=== PATIENT | female | born 1940 | race Caucasian/White ===

== ENCOUNTER 2019-02-25 12:56 | Observation (INO) | payer MEDICARE, OTHER ==
[~2019-02-25] VITALS: Ht 165.1 cm; Wt 63.5 kg
--- NOTE | ~2019-02-25 | CN ---
PATIENT NAME:ANDRY QUAN MEDICAL RECORD: [id number] : 44 LOCATION:D.MS [address] ADMIT DATE: 02/25/19 ACCOUNT: [id number] CONSULTING PHYSICIAN: SHANTHI CAIN MD REFERRING PHYSICIAN: SHERIF MONGE MD DATE OF CONSULTATION: 02/26/2019 CARDIOLOGY CONSULTATION DATE OF SERVICE: 02/26/2019 DIAGNOSES: 1. Transient ischemic attack. 2. Carotid vascular disease. 3. Hyperlipidemia. HISTORY OF PRESENT ILLNESS: Mrs. Quan presented with 2 days of having TIA symptomatology. This has all resolved. She is on Plavix and has been on Plavix for the last 3 years due to carotid vascular disease. Her carotid ultrasound showed no stenosis greater than 50%. Echocardiogram was performed. This revealed no significant cardiac source of neurologic emboli. PHYSICAL EXAMINATION: GENERAL APPEARANCE: Well-nourished, well-developed, appears stated age. Level of distress, comfortable. PSYCHIATRIC: Mental status, alert, normal affect. Orientation, oriented to time, place and person. EYES: Lids and conjunctiva, noninjected. No discharge, no pallor. ENT: Lips, teeth, gums, normal dentition. Oropharynx, no cyanosis, no pallor. NECK: Carotid arteries, bilateral normal upstroke, no bruits, no thrills. JUGULAR VEINS: No jugular venous pressure or distention. CERVICAL LYMPH NODES: Nontender, nonenlarged. THYROID: Not enlarged. Nontender. No nodules. LUNGS: Respiratory effort, unlabored. CHEST: Normal curvature. No thoracic deformity. No chest wall tenderness. Percussion, resonant. Auscultation, clear. No wheezes, no rales, no rhonchi. CARDIOVASCULAR: Precordial exam, nondisplaced. No heaves or pericardial thrills. Rate and rhythm, regular. Heart sounds, normal S1, normal S2. No S3, no gallop, no rub. Systolic murmur, not heard. Diastolic murmur, not heard. EXTREMITIES: No cyanosis, no edema. Peripheral pulses, full and equal in all extremities, except as noted. No bruits appreciated. ABDOMEN: Soft, nondistended. Normal aorta. No bruit. Nontender. No masses. Liver, nontender, no hepatomegaly. Spleen, nontender, no splenomegaly. MUSCULOSKELETAL: No joint tenderness. No joint swelling. No erythema. NEUROLOGICAL: Normal gait, normal strength, normal tone. SKIN: Warm and dry. OVERALL IMPRESSION: Transient ischemic attacks with nonsignificant carotid vascular disease. No cardiac source of neurologic emboli, hyperlipidemia controlled on fenofibrate and fish oil at this time. We would leave her on her Plavix that she is on as changing to Xarelto or Eliquis has no benefit from the standpoint of recurrent transient ischemic attacks. She needs to be followed by neurology. She lives close to the [facility], I would suggest that she follow up with Dr. Dillan Salmon, neurology, for the recurrent transient ischemic attacks. CONSULT REPORT [id number] ANDRY QUAN TRANSINT:[id number] Voice Confirmation ID: [id number] DOCUMENT ID: [id number] SHANTHI CAIN MD CC: [id number] DICTATION DATE: 02/26/19 1039 ORACLE OBIEE DEVELOPER: 02/26/19 1142 ADM IN [facility] [address] [id number]
[2019-02-25] MEDS ORDERED: HYDROCHLOROTHIA25 MG PO (13:14)
[2019-02-25] MEDS ORDERED: FENOFIBRATE160 MG PO (13:14)
[2019-02-25] MEDS ORDERED: VITAMIN D250000 UNIT PO (13:14)
[2019-02-25] MEDS ORDERED: GLUCOPHAGE1000 MG PO (13:14)
[2019-02-25] MEDS ORDERED: PLAVIX75 MG PO (13:14)
[2019-02-25] MEDS ORDERED: GLIMEPIRIDE4 MG PO (13:14)
[2019-02-25] MEDS ORDERED: FISH OIL 1,0001 CA1 PO (13:15)
[2019-02-25] MEDS ORDERED: CHLOR-TRIMETON4 MG PO (13:15)
[2019-02-25] MEDS ORDERED: MUCINEX600 MG PO (13:15)
[2019-02-25] MEDS ORDERED: COLACE100 MG PO (13:16)
[2019-02-25] MEDS ORDERED: BAYER CHEWABLE81 MG (13:16)
[2019-02-25] MEDS ORDERED: PEPCID AC20 MG PO (13:16)
[2019-02-25] MEDS ORDERED: MIRALAX17 GM PO (13:17)
[2019-02-25 13:45] VITALS: BP 171/81
--- NOTE | 2019-02-25 13:55 | NUR ---
BLOOD SUGAR 186
[2019-02-25 14:31] VITALS: BP 179/91
[2019-02-25 14:47] LABS: BASOPHILS 0.2 % (0-2); EOSINOPHILS 0.3 % (0-7); HEMATOCRIT 44.2 % (36.0-48.0); IMMATURE GRANULOCYTES 0.5 % (0-5); MCH 32.1 pg (26.0-34.0); MCHC 36.2 g/dL (31.0-37.0); MCV 88.6 fL (80.0-100.0); MEAN PLATELET VOLUME 9.9 fL (7.4-10.4); PLATELET COUNT 202 10x3/uL (130-400); RBC 4.99 10x6/uL (4.00-5.40); RDW 13.3 % (11.5-14.5); WBC 6.6 10x3/uL (4.8-10.8)
[2019-02-25 15:05] LABS: APTT 23.4 SECONDS (22.8-39.4); INR 1.09 (0.85-1.17); PROTIME 13.6 SECONDS (11.6-15.0)
[2019-02-25 15:30] VITALS: BP 170/75
[2019-02-25 15:32] LABS: ALBUMIN 4.6 g/dL (3.4-5.0); ALKALINE PHOSPHATASE 83 U/L (46-116); ALT (SGPT) 36 U/L (10-68); BILIRUBIN - TOTAL 0.52 mg/dL (0.2-1.3); CALC OSMOLALITY 278 mosm/kg (275-300); CALCIUM 9.6 mg/dL (8.5-10.1); CARBON DIOXIDE 25.8 mmol/L (21.0-32.0); CHLORIDE - SERUM 98 mmol/L (98-107); CKMB 0.9 U/L (0.0-3.6); CREATINE KINASE 32 UL (21-215); CREATININE - SERUM 0.7 mg/dL (0.6-1.3); GLUCOSE 183 mg/dL (74-106); MAGNESIUM - SERUM 2.2 mg/dL (1.8-2.4); POTASSIUM - SERUM 3.4 mmol/L (3.5-5.1); PROTEIN - SERUM 7.2 g/dL (6.4-8.2); SODIUM 136 mmol/L (136-145); THYROID STIMULATING HORMONE 2.23 uIU/mL (0.36-3.74); TROPONIN-I < 0.017 ng/mL (0.000-0.060); UREA NITROGEN 17 mg/dL (7-18); eGFR NON AFRICAN AMERICAN 86 mL/min (90-120)
[2019-02-25 16:48] VITALS: BP 133/75
--- NOTE | 2019-02-25 17:25 | NUR ---
RECEIVED TO ROOM 2211VIA STRETCHER FROM ER. FAMILY AT BEDSIDE. A/O X3. NO C/O PAIN AT THIS TIME. NO DEFICITS NOTED. DENIES NEEDS. SKIN INTACT WITHOUT REDNESS.
[2019-02-25 17:34] VITALS: BP 194/83; BMI 23.3
--- NOTE | 2019-02-25 18:00 | NUR ---
SUPPER TRAY SERVED IN ROOM. FEEDS SELF WITHOUT SIGNS OF ASPIRATION OR DIFFICULTY.SHE IS HAVING SOME HESITENCY WITH WORD FINDING. DENIES NEEDS. FAMILY STATED THIS IS WHAT HAPPENED EARLIER TODAY AND YESTERDAY. WILL MONITOR.
[2019-02-25 18:10] LABS: CHOL - HDL RATIO 5.6 ratio (2.3-4.1)
--- NOTE | 2019-02-25 19:45 | NUR ---
PT SITTING UP IN BED, NO SIGNS OF DISTRESS. ALERT AND ORIENTED. PT FEELING SICK TO STOMACH, VOMITED APPROXIMATELY 200ML OF GREEN EMESIS. CHANGED LINENS. GAVE PT ZOFRAN. IV LEFT FA SL. DENIES NEEDS. CL IN REACH, WILL CONT TO MONITOR
[2019-02-25 21:24] VITALS: BP 160/75
[2019-02-26 01:10] LABS: APPEARANCE CLEAR (CLEAR); BILIRUBIN NEGATIVE (NEGATIVE); COLOR YELLOW (YELLOW); GLUCOSE 50 mg/dL (NEGATIVE); KETONE SMALL mg/dL (NEGATIVE); NITRITE NEGATIVE (NEGATIVE); PROTEIN NEGATIVE (NEGATIVE); UROBILINOGEN NORMAL (NORMAL)
[2019-02-26 01:28] VITALS: BP 131/82
[2019-02-26 05:34] VITALS: BP 115/52
[2019-02-26 05:38] LABS: BASOPHILS 0.3 % (0-2); HEMATOCRIT 38.8 % (36.0-48.0); HEMOGLOBIN 14.1 g/dL (12-16); IMMATURE GRANULOCYTES 0.3 % (0-5); LYMPHOCYTES 20.6 % (15-50); MCH 31.7 pg (26.0-34.0); MCHC 36.3 g/dL (31.0-37.0); MCV 87.2 fL (80.0-100.0); MEAN PLATELET VOLUME 9.8 fL (7.4-10.4); MONOCYTES 9.9 % (2-11); NEUTROPHILS 67.9 % (40-80); PLATELET COUNT 213 10x3/uL (130-400); RBC 4.45 10x6/uL (4.00-5.40)
[2019-02-26 05:57] LABS: ALBUMIN 3.9 g/dL (3.4-5.0); ALKALINE PHOSPHATASE 69 U/L (46-116); ALT (SGPT) 35 U/L (10-68); BILIRUBIN - TOTAL 0.45 mg/dL (0.2-1.3); CALC OSMOLALITY 276 mosm/kg (275-300); CALCIUM 8.8 mg/dL (8.5-10.1); CARBON DIOXIDE 30.1 mmol/L (21.0-32.0); CHLORIDE - SERUM 98 mmol/L (98-107); CKMB 0.8 U/L (0.0-3.6); CREATINE KINASE 20 UL (21-215); CREATININE - SERUM 0.7 mg/dL (0.6-1.3); GLUCOSE 172 mg/dL (74-106); PROTEIN - SERUM 6.1 g/dL (6.4-8.2); SODIUM 136 mmol/L (136-145); TROPONIN-I < 0.017 ng/mL (0.000-0.060); UREA NITROGEN 15 mg/dL (7-18); eGFR NON AFRICAN AMERICAN 86 mL/min (90-120)
--- NOTE | 2019-02-26 07:21 | NUR ---
PT RESTING IN BED WITH SPOUSE AT BEDSIDE. NO ACUTE DISTRESS NOTED. ALERT AND ORIENTED, BILAT EQUAL CRAPS MANAGER STRONG, SPEECH CLEAR WITHOUT SLURRING. SALINE LOC TO LEFT FOREARM, SITE WITHOUT REDNESS OR EDEMA, EASILY FLUSHED. DENIES PAIN OR FURTHER NEEDS AT THIS TIME. CL WITHIN REACH. ENCOURAGED TO CALL WITH NEEDS. CONTINUE POC
[2019-02-26 09:10] VITALS: BP 144/73
[2019-02-26 10:06] VITALS: Ht 165.1 cm; Wt 63.5 kg
[2019-02-26 13:04] VITALS: BP 128/68
--- NOTE | 2019-02-26 15:45 | NUR ---
PT TAKEN VIA W/C TO MRI. NO ACUTE DISTRESS NOTED
--- NOTE | 2019-02-26 17:08 | NUR ---
PT DISCHARGE PAPERWORK DISCUSSED. EDUCATED REGARDING CONTINUATION OF HOME MEDICATIONS. FOLLOW UP DISCUSSIONS DISCUSSED. DENIES QUESTIONS AT THIS TIME. SALINE LOC D/C'D FROM LEFT FOREARM, CATH INTACT. TAKEN OUT VIA W/C TO PVT VEHICLE WITH PERSONAL BELONGINGS
== END 2019-02-26 17:10 | disposition home or self-care (01) ==
LOC: D.ER 12:56 → D.MS 17:06 → OBSVTIME 17:06 → D.MS 17:06
PROVIDERS: Family Medicine; ADMIT Internal Medicine Nephrology; ATTEND Internal Medicine Nephrology
DX: G45.9 Transient cerebral ischemic attack, unspecified (principal); E78.5 Hyperlipidemia, unspecified; I10 Essential (primary) hypertension; E11.9 Type 2 diabetes mellitus without complications; E87.6 Hypokalemia

== ENCOUNTER 2019-03-15 13:49 | Emergency (ER) | payer MEDICARE, OTHER ==
[~2019-03-15 13:49] MED LIST: BAYER CHEWABLE81 MG; CHLOR-TRIMETON4 MG PO; COLACE100 MG PO; FENOFIBRATE160 MG PO; FISH OIL 1,0001 CA1 PO; GLIMEPIRIDE4 MG PO; GLUCOPHAGE1000 MG PO; HYDROCHLOROTHIA25 MG PO; MIRALAX17 GM PO; MUCINEX600 MG PO; PEPCID AC20 MG PO; PLAVIX75 MG PO; VITAMIN D250000 UNIT PO
[2019-03-15 14:07] VITALS: BMI 23.3
[2019-03-15 14:53] LABS: BASOPHILS 0.2 % (0-2); EOSINOPHILS 1.2 % (0-7); HEMATOCRIT 38.1 % (36.0-48.0); HEMOGLOBIN 13.8 g/dL (12-16); IMMATURE GRANULOCYTES 0.2 % (0-5); LYMPHOCYTES 13.5 % (15-50); MCH 32.2 pg (26.0-34.0); MCHC 36.2 g/dL (31.0-37.0); MEAN PLATELET VOLUME 9.9 fL (7.4-10.4); MONOCYTES 6.1 % (2-11); NEUTROPHILS 78.8 % (40-80); PLATELET COUNT 195 10x3/uL (130-400); RBC 4.28 10x6/uL (4.00-5.40); RDW 13.3 % (11.5-14.5); WBC 9.3 10x3/uL (4.8-10.8)
[2019-03-15 15:04] LABS: INR 1.09 (0.85-1.17); PROTIME 13.6 SECONDS (11.6-15.0)
[2019-03-15 15:07] LABS: ALBUMIN 4.2 g/dL (3.4-5.0); ALKALINE PHOSPHATASE 78 U/L (46-116); ALT (SGPT) 36 U/L (10-68); BILIRUBIN - TOTAL 0.48 mg/dL (0.2-1.3); CALC OSMOLALITY 287 mosm/kg (275-300); CALCIUM 8.9 mg/dL (8.5-10.1); CARBON DIOXIDE 27.7 mmol/L (21.0-32.0); CHLORIDE - SERUM 100 mmol/L (98-107); CREATININE - SERUM 0.7 mg/dL (0.6-1.3); GLUCOSE 200 mg/dL (74-106); POTASSIUM - SERUM 3.1 mmol/L (3.5-5.1); PROTEIN - SERUM 6.7 g/dL (6.4-8.2); SODIUM 140 mmol/L (136-145); UREA NITROGEN 21 mg/dL (7-18); eGFR NON AFRICAN AMERICAN 86 mL/min (90-120)
[2019-03-15 15:19] LABS: CKMB 1.4 U/L (0.0-3.6); CREATINE KINASE 45 UL (21-215)
[2019-03-15 15:20] LABS: TROPONIN-I < 0.017 ng/mL (0.000-0.060)
[2019-03-15] MEDS ORDERED: CYCLOBENZAPRINE10 MG PO (16:03)
[2019-03-15 16:19] VITALS: BP 138/60
== END 2019-03-15 16:20 | disposition home or self-care (01) ==
LOC: D.ER 13:49
PROVIDERS: Emergency Medicine
DX: S70.01XA Contusion of right hip, initial encounter (principal); W18.30XA Fall on same level, unspecified, initial encounter; Y93.89 Activity, other specified; Y92.89 Other specified places as the place of occurrence of the external cause; S61.012A Laceration without foreign body of left thumb without damage to nail, initial encounter; T14.8XXA Other injury of unspecified body region, initial encounter; S63.501A Unspecified sprain of right wrist, initial encounter

== ENCOUNTER → 2019-04-02 09:08 | Outpatient (CLI) | payer MEDICARE, OTHER ==
[2019-03-15 14:07] VITALS: BMI 23.3
[~2019-04-02 09:08] MED LIST changes: +CYCLOBENZAPRINE10 MG PO
== END | disposition home or self-care (01) ==
LOC: D.CT 09:08
PROVIDERS: ATTEND Internal Medicine Cardiovascular Disease
DX: I65.29 Occlusion and stenosis of unspecified carotid artery (principal); G45.9 Transient cerebral ischemic attack, unspecified

== ENCOUNTER 2020-06-03 17:42 | Emergency (ER) | payer MEDICARE, OTHER ==
[~2020-06-03] VITALS: Ht 165.1 cm; Wt 63.6 kg
[2020-06-03 17:57] LABS: BASOPHILS 0.3 % (0-2); EOSINOPHILS 2.7 % (0-7); IMMATURE GRANULOCYTES 0.3 % (0-5); LYMPHOCYTES 21.8 % (15-50); MCH 32.3 pg (26.0-34.0); MCV 92.4 fL (80.0-100.0); MEAN PLATELET VOLUME 9.9 fL (7.4-10.4); MONOCYTES 6.7 % (2-11); NEUTROPHILS 68.2 % (40-80); PLATELET COUNT 202 10x3/uL (130-400); RBC 4.33 10x6/uL (4.00-5.40); RDW 13.6 % (11.5-14.5); WBC 5.9 10x3/uL (4.8-10.8)
[2020-06-03 18:01] VITALS: Ht 165.1 cm; Wt 63.6 kg
[2020-06-03 18:21] LABS: INR 1.01 (0.85-1.17); PROTIME 13.3 SECONDS (11.6-15.0)
[2020-06-03 18:26] LABS: CALC OSMOLALITY 277 mosm/kg (275-300); CALCIUM 8.9 mg/dL (8.5-10.1); CARBON DIOXIDE 22.4 mmol/L (21.0-32.0); CHLORIDE - SERUM 101 mmol/L (98-107); CREATININE - SERUM 0.9 mg/dL (0.6-1.3); GLUCOSE 188 mg/dL (74-106); POTASSIUM - SERUM 3.8 mmol/L (3.5-5.1); SODIUM 136 mmol/L (136-145); UREA NITROGEN 16 mg/dL (7-18); eGFR NON AFRICAN AMERICAN 64 mL/min (90-120)
[2020-06-03 18:44] LABS: ALBUMIN 3.9 g/dL (3.4-5.0); ALKALINE PHOSPHATASE 88 U/L (30-120); ALT (SGPT) 28 U/L (10-68); CKMB 0.9 U/L (0.0-3.6); CREATINE KINASE 31 UL (21-215); MAGNESIUM - SERUM 2.2 mg/dL (1.8-2.4); PROTEIN - SERUM 6.3 g/dL (6.4-8.2); THYROID STIMULATING HORMONE 5.46 uIU/mL (0.36-3.74)
[2020-06-03 18:48] LABS: TROPONIN-I < 0.017 ng/mL (0.000-0.060)
[2020-06-03 19:26] VITALS: BP 126/48
== END 2020-06-03 19:28 | disposition home or self-care (01) ==
LOC: D.ER 17:42
PROVIDERS: Emergency Medicine
DX: G45.9 Transient cerebral ischemic attack, unspecified (principal); R47.81 Slurred speech; E11.9 Type 2 diabetes mellitus without complications; I10 Essential (primary) hypertension; Z79.84 Long term (current) use of oral hypoglycemic drugs; T50.905A Adverse effect of unspecified drugs, medicaments and biological substances, initial encounter; Y92.9 Unspecified place or not applicable

== ENCOUNTER → 2020-06-24 08:31 | Outpatient (CLI) | payer MEDICARE, OTHER ==
[2020-06-03 18:01] VITALS: BMI 23.3
== END | disposition home or self-care (01) ==
LOC: D.MRI 08:31
PROVIDERS: ATTEND Psychiatry & Neurology Neurology
DX: G45.9 Transient cerebral ischemic attack, unspecified (principal)

== ENCOUNTER → 2020-07-15 13:09 | Outpatient (CLI) | payer MEDICARE, OTHER ==
[2020-06-03 18:01] VITALS: BMI 23.3
== END | disposition home or self-care (01) ==
LOC: D.HCCECHO 13:09
PROVIDERS: ATTEND Internal Medicine Cardiovascular Disease
DX: I10 Essential (primary) hypertension (principal)

== ENCOUNTER 2021-01-11 12:17 | Inpatient (IN) | payer MEDICARE, OTHER ==
[2021-01-11] VITALS (20 sets, daily range): BP systolic 136–195; BP diastolic 60–98; BMI 21.0
[~2021-01-11] VITALS: Ht 165.1 cm; Wt 57.2 kg
[~2021-01-11 12:17] MED LIST changes: +ASPIRIN; +CHLORPHENIRAMINE; +DIPYRIDAMOLE; +GLIMEPIRIDE4 MG; +LOPRESSOR25 MG PO; +METHOCARBAMOL500 MG; +PERCOCET 5-3251 TAB PO; +PREVAGEN
[2021-01-11 13:06] LABS: BASOPHILS 0.5 % (0-2); HEMATOCRIT 43.6 % (36.0-48.0); HEMOGLOBIN 15.4 g/dL (12-16); IMMATURE GRANULOCYTES 0.2 % (0-5); LYMPHOCYTE ABS# 1.03 10x3/uL (1.18-3.74); MCH 32.2 pg (26.0-34.0); MCHC 35.3 g/dL (31.0-37.0); MCV 91.2 fL (80.0-100.0); MEAN PLATELET VOLUME 9.9 fL (7.4-10.4); MONOCYTES 8.7 % (2-11); NEUTROPHILS 71.6 % (40-80); RBC 4.78 10x6/uL (4.00-5.40); RDW 13.7 % (11.5-14.5); WBC 5.7 10x3/uL (4.8-10.8)
[2021-01-11 13:07] LABS: PLATELET COUNT 169 10x3/uL (130-400)
[2021-01-11 13:35] LABS: CALC OSMOLALITY 275 mosm/kg (275-300); CALCIUM 9.1 mg/dL (8.5-10.1); CHLORIDE - SERUM 99 mmol/L (98-107); CREATININE - SERUM 0.6 mg/dL (0.6-1.3); GLUCOSE 204 mg/dL (74-106); INR 1.04 (0.85-1.17); POTASSIUM - SERUM 3.8 mmol/L (3.5-5.1); PROTIME 12.5 SECONDS (11.6-15.0); SODIUM 136 mmol/L (136-145); UREA NITROGEN 8 mg/dL (7-18); eGFR NON AFRICAN AMERICAN > 90 mL/min (90-120)
[2021-01-11 13:51] LABS: ALBUMIN 4.2 g/dL (3.4-5.0); ALKALINE PHOSPHATASE 100 U/L (30-120); ALT (SGPT) 23 U/L (10-68); BILIRUBIN - TOTAL 0.63 mg/dL (0.2-1.3); CKMB 0.8 U/L (0.0-3.6); CREATINE KINASE 19 UL (21-215); THYROID STIMULATING HORMONE 1.53 uIU/mL (0.36-3.74)
[2021-01-11 13:52] LABS: TROPONIN-I < 0.017 ng/mL (0.000-0.060)
[2021-01-11 16:57] LABS: CHOL - HDL RATIO 4.3 ratio (2.3-4.1); LDL-HDL RATIO 2.7 ratio (1.5-3.5)
[2021-01-11 16:59] LABS: BILIRUBIN NEGATIVE (NEGATIVE); KETONE SMALL mg/dL (NEGATIVE); NITRITE NEGATIVE (NEGATIVE); UROBILINOGEN NORMAL mg/dL (< 2)
--- NOTE | 2021-01-11 18:49 | NUR ---
ROOM 2306 ICU / REPORT GIVEN TO GRETCHEN
--- NOTE | 2021-01-11 19:06 | NUR ---
DR. NJ PAGED REGARDING CONSULT
--- NOTE | 2021-01-11 19:09 | NUR ---
ONDINA MUNGUIA CALLED BACK IS AWARE OF CONSULT
--- NOTE | 2021-01-11 19:13 | NUR ---
DR. MCMILLAN CALLED AND NOTIFIED OF CONSULT
[2021-01-12] VITALS (19 sets, daily range): BP systolic 132–190; BP diastolic 58–103; Ht 165.1 cm; Wt 57.2 kg
--- NOTE | 2021-01-12 05:04 | NUR ---
PT RESTED MOST OF THE NIGHT, VSS, WILL CONTINUE TO MONITOR
[2021-01-12 05:18] LABS: BASOPHILS 0.3 % (0-2); EOSINOPHILS 0.3 % (0-7); HEMATOCRIT 39.4 % (36.0-48.0); HEMOGLOBIN 13.8 g/dL (12-16); IMMATURE GRANULOCYTES 0.2 % (0-5); LYMPHOCYTE ABS# 1.41 10x3/uL (1.18-3.74); LYMPHOCYTES 15.9 % (15-50); MCV 91.4 fL (80.0-100.0); MEAN PLATELET VOLUME 10.7 fL (7.4-10.4); MONOCYTES 9.8 % (2-11); NEUTROPHIL ABS# 6.49 10x3/uL (1.56-6.13); NEUTROPHILS 73.5 % (40-80); RBC 4.31 10x6/uL (4.00-5.40); RDW 13.7 % (11.5-14.5)
[2021-01-12 05:22] LABS: PLATELET COUNT 211 10x3/uL (130-400); WBC 8.9 10x3/uL (4.8-10.8)
[2021-01-12 05:49] LABS: CALC OSMOLALITY 276 mosm/kg (275-300); CALCIUM 8.5 mg/dL (8.5-10.1); CARBON DIOXIDE 26.1 mmol/L (21.0-32.0); CHLORIDE - SERUM 100 mmol/L (98-107); CREATININE - SERUM 0.7 mg/dL (0.6-1.3); GLUCOSE 166 mg/dL (74-106); POTASSIUM - SERUM 3.5 mmol/L (3.5-5.1); SODIUM 137 mmol/L (136-145); UREA NITROGEN 9 mg/dL (7-18); eGFR NON AFRICAN AMERICAN 86 mL/min (90-120)
[2021-01-12] MEDS ORDERED: PLAVIX75 MG PO (07:57)
[2021-01-12] MEDS ORDERED: HYDROCODON-ACE1 EA10 PO (07:58)
--- NOTE | 2021-01-12 17:59 | NUR ---
REPORT GIVEN TO FRANCES CAUSEY. PT TRANSFERRED TO RM 2109. VS STABLE. SPOUSE WITH PT AT TIME OF TRANSFER. NO COMPLAINTS PER PT OR FAMILY AT TIME OF TRANSFER.
--- NOTE | 2021-01-12 18:00 | NUR ---
RECEIVED PATIENT FROM ICU, PATIENT IS ALERT, CONFUSED ABOUT WHERE SHE IS AT. AT BEDSIDE. VITALS TAKEN, WNL. PATIENT IS LYING IN BED, SCDS ARE CONNECTED. PATIENT DENIES PAIN OR NEEDS. CALL LIGHT IN REACH
[2021-01-12 18:52] LABS: CALC OSMOLALITY 270 mosm/kg (275-300); CALCIUM 8.7 mg/dL (8.5-10.1); CARBON DIOXIDE 25.2 mmol/L (21.0-32.0); CHLORIDE - SERUM 100 mmol/L (98-107); CREATININE - SERUM 0.6 mg/dL (0.6-1.3); GLUCOSE 156 mg/dL (74-106); SODIUM 135 mmol/L (136-145); eGFR NON AFRICAN AMERICAN > 90 mL/min (90-120)
[2021-01-12 18:54] LABS: UREA NITROGEN 6 mg/dL (7-18)
--- NOTE | 2021-01-12 19:15 | NUR ---
PT CONFUSED, PT GOT UP AND FELL TO FLOOR, PT HIT HEAD ON FLOOR, SHABNAM BAKER CALLED, CT TO HEAD ORDERED AT THIS TIME.
--- NOTE | 2021-01-12 20:30 | NUR ---
PT CT NEGATIVE, PT SPOUSE IN ROOM WITH PT, PT RESP EVEN AND UNLABORED, NO DISTRESS NOTED, CL IN REACH, SR UP X 2.
[2021-01-13 04:00] VITALS: BP 154/60
--- NOTE | 2021-01-13 05:46 | NUR ---
I have reviewed this patient and I concur with the Shift Assessment completed by the Licensed Practical Nurse today this shift.
[2021-01-13 06:34] LABS: BASOPHILS 0.2 % (0-2); EOSINOPHILS 0.4 % (0-7); HEMATOCRIT 37.2 % (36.0-48.0); HEMOGLOBIN 13.1 g/dL (12-16); IMMATURE GRANULOCYTES 0.5 % (0-5); LYMPHOCYTE ABS# 0.83 10x3/uL (1.18-3.74); MCHC 35.2 g/dL (31.0-37.0); MEAN PLATELET VOLUME 10.3 fL (7.4-10.4); MONOCYTES 8.5 % (2-11); NEUTROPHIL ABS# 7.53 10x3/uL (1.56-6.13); NEUTROPHILS 81.4 % (40-80); PLATELET COUNT 189 10x3/uL (130-400); RBC 4.09 10x6/uL (4.00-5.40); RDW 13.8 % (11.5-14.5); WBC 9.3 10x3/uL (4.8-10.8)
[2021-01-13 06:54] LABS: APTT 25.8 SECONDS (22.8-39.4); INR 1.18 (0.85-1.17); PROTIME 13.9 SECONDS (11.6-15.0)
[2021-01-13 06:56] LABS: ALBUMIN 3.7 g/dL (3.4-5.0); ALKALINE PHOSPHATASE 90 U/L (30-120); ALT (SGPT) 23 U/L (10-68); BILIRUBIN - TOTAL 0.85 mg/dL (0.2-1.3); CALCIUM 8.8 mg/dL (8.5-10.1); CARBON DIOXIDE 25.4 mmol/L (21.0-32.0); CHLORIDE - SERUM 101 mmol/L (98-107); CREATININE - SERUM 0.6 mg/dL (0.6-1.3); GLUCOSE 183 mg/dL (74-106); MAGNESIUM - SERUM 1.9 mg/dL (1.8-2.4); PROTEIN - SERUM 6.2 g/dL (6.4-8.2); SODIUM 135 mmol/L (136-145); eGFR NON AFRICAN AMERICAN > 90 mL/min (90-120)
[2021-01-13 06:57] LABS: CALC OSMOLALITY 272 mosm/kg (275-300); POTASSIUM - SERUM 3.1 mmol/L (3.5-5.1); UREA NITROGEN 8 mg/dL (7-18)
[2021-01-13 08:01] VITALS: BP 153/79
[2021-01-13 11:55] VITALS: BP 118/85
--- NOTE | 2021-01-13 13:23 | NUR ---
OT NOTE: PT WAS JUST FINISHING UP WITH PHYS THERAPY..OT ASSISTED WITH EQUIP MGMT DURING AMBULATION; EOB SITTING WITH GOOD BALANCE; PT WAS PREVIOUSLY EATING A HAMBURGER UPON EARLIER ATTEMPT. PT DOING WELL WITH BRINGING FOOD TO MOUTH. REPORTS THAT THIS IS THE MOST SHE HAS EATEN IN MANY DAYS. PT SPEECH IS MORE CLEAR THAN YESTERDAY. ABLE TO ARTICULATE 4-5 WORD SENTENCES. PT APPARENTLY HAD A FALL LAST NIGHT AND HAS HEMATOMA ON BACK OF HEAD. DID NOT REPORT ANY OTHER INJURY. ANSWERED PT AND FAMILY QUESTIONS REGARDING IP REHAB. CONT TO RECOMMEND IP REHAB TO ALLOW PT TO RETURN TO PLOF. OSIRIS MARVIN, OTR/L [id number]
[2021-01-13 15:24] VITALS: BP 157/73
--- NOTE | 2021-01-13 19:30 | NUR ---
PT IN BED, AAO X 2, RESP EVEN AND UNLABORED, NO DISTRESS NOTED, CL IN REACH, SR UP X 2.
[2021-01-13 19:31] VITALS: BP 116/62
--- NOTE | 2021-01-14 03:40 | NUR ---
I have reviewed this patient and I concur with the Shift Assessment completed by the Licensed Practical Nurse today this shift.
[2021-01-14 05:10] LABS: BASOPHILS 0.2 % (0-2); EOSINOPHILS 2.8 % (0-7); HEMATOCRIT 39.4 % (36.0-48.0); HEMOGLOBIN 13.8 g/dL (12-16); IMMATURE GRANULOCYTES 0.3 % (0-5); MCH 31.8 pg (26.0-34.0); MCV 90.8 fL (80.0-100.0); MEAN PLATELET VOLUME 9.9 fL (7.4-10.4); MONOCYTES 9.9 % (2-11); NEUTROPHIL ABS# 4.53 10x3/uL (1.56-6.13); NEUTROPHILS 73.8 % (40-80); PLATELET COUNT 184 10x3/uL (130-400); RBC 4.34 10x6/uL (4.00-5.40); RDW 13.8 % (11.5-14.5)
[2021-01-14 05:18] LABS: WBC 6.1 10x3/uL (4.8-10.8)
[2021-01-14 05:35] LABS: ALBUMIN 3.9 g/dL (3.4-5.0); ALKALINE PHOSPHATASE 95 U/L (30-120); ALT (SGPT) 19 U/L (10-68); BILIRUBIN - TOTAL 0.97 mg/dL (0.2-1.3); CALC OSMOLALITY 277 mosm/kg (275-300); CALCIUM 8.8 mg/dL (8.5-10.1); CARBON DIOXIDE 25.6 mmol/L (21.0-32.0); CHLORIDE - SERUM 100 mmol/L (98-107); CREATININE - SERUM 0.7 mg/dL (0.6-1.3); GLUCOSE 174 mg/dL (74-106); MAGNESIUM - SERUM 2.2 mg/dL (1.8-2.4); PROTEIN - SERUM 6.7 g/dL (6.4-8.2); SODIUM 138 mmol/L (136-145); UREA NITROGEN 8 mg/dL (7-18); eGFR NON AFRICAN AMERICAN 86 mL/min (90-120)
--- NOTE | 2021-01-14 07:10 | NUR ---
Lying in bed, awake/alert/oriented, spouse at bedside, T/R self ad jordana, cont of B/B with assist to BSC ad jordana, denies pain/other discomfort, call light/phone/water within reach, no s/s of acute distress observed.
[2021-01-14 08:25] VITALS: BP 176/77
[2021-01-14 12:23] VITALS: BP 180/85
--- NOTE | 2021-01-14 12:28 | NUR ---
Nutrition Follow-up: Pt reports appetite improving. reports that pt ate 100% of lunch yesterday, as well as 100% of a [employer] hamburger; did not eat dinner last night. Mild nausea, mostly with movement; no vomiting. Last BM was 01/12. Pt reports that she typically takes a stool softener at home. Agreed to Glucerna; will try to drink 1-2/day. ST following. Diet: Regular, Mech Soft No new wt; last wt: 126# (01/12) Labs noted: K+ 3.0, Glu 174 Meds noted: Pepcid, Protonix, Humulin, NS @ 100, electrolyte protocol -Diet changed to carb consistent (mech soft) with Glucerna BID. -Encourage PO intake and honor food preferences within diet restrictions. -Need new wt. -Pt may benefit from bowel regimen. -RD follow-up: 01/19
--- NOTE | 2021-01-14 17:08 | NUR ---
OT NOTE: PT COMPLETED SUPINE TO SIT WITH CGA. PT COMPLETED ADL MOB USING RW REQUIRED CGA-MIN A. PT COMPLETED BUE AROM EXS WHILE SEATED AT EOB. PT COMPLETED FACE HYGIENE WITH SETUP. PT COMPLETED HAND HYGIENE WITH SETUP. [phone] THANK YOU,LEO WAYNE
--- NOTE | 2021-01-14 19:30 | NUR ---
PT IN BED, PT AAO X 2, CONFUSED AT TIMES, SPOUSE AT BEDSIDE, RESP EVEN AND UNLABORED, NO DISTRESS NOTED, CL IN REACH, SR UP X 2.
[2021-01-14 20:08] VITALS: BP 175/76
[2021-01-15 01:11] VITALS: BP 139/76
[2021-01-15 04:59] VITALS: BP 167/87
--- NOTE | 2021-01-15 05:44 | MORECARE ---
CASE MANAGEMENT DISCHARGE SUMMARY PATIENT: ANDRY BROWNE UNIT: [id number] ADM DATE: 01/11/21 AGE: 80 : 42 SEX: F ROOM/BED: D.2109 AUTHOR: JENAEDOC PHYSICIAN: REFERRING PHYSICIAN: AL NOONAN MD DATE OF SERVICE: 01/15/21 Case Management Discharge Planning Summary DCP REVIEW SUMMARY ANTICIPATED D/C DATE: EXPECTED LOS : CASE STATUS: DCP Initiated INITIAL REVIEW: 01/11/2021 INITIAL REVIEWER: Krysta Jack FINAL DISCHARGE DISPOSITION: : FINAL REVIEWER: FINAL REVIEW DATE: DCP Focus Questions & Answers QUESTION: ANSWER : PATIENT: ANDRY BROWNE ENCOUNTER: [id number] MEDICAL RECORD#: [id number] ADMISSION DATE: 01/11/2021 DISCHARGE DATE: ATTENDING MD: AL ROSS : AGE: 80 MARITAL STATUS: M DC PLAN ID: [id number] FACILITY: [facility] PRINTED ON: 01/15/21 5:44 CT All edits/amendments must be made on the electronic document DICTATION DATE: 01/15/2144 PRACTICE MANAGEMENT CONSULTANT: DM 01/15/2144 RPT#: [id number] DC DATE: STATUS: ADM IN [facility] [address] [place] [address] END OF REPORT
--- NOTE | 2021-01-15 06:04 | MORECARE ---
CASE MANAGEMENT DISCHARGE SUMMARY PATIENT: ANDRY QUAN UNIT: [id number] ADM DATE: 01/11/21 AGE: 80 : 42 SEX: F ROOM/BED: D.8050 AUTHOR: PRITI EMANUEL PHYSICIAN: REFERRING PHYSICIAN: AL NOONAN MD DATE OF SERVICE: 01/15/21 Case Management Discharge Planning Summary DCP REVIEW SUMMARY ANTICIPATED D/C DATE: EXPECTED LOS : CASE STATUS: DCP Initiated INITIAL REVIEW: 01/11/2021 INITIAL REVIEWER: Krysta Jack FINAL DISCHARGE DISPOSITION: : FINAL REVIEWER: FINAL REVIEW DATE: DCP Focus Questions & Answers DCP Evaluation QUESTION: ANSWER Patient and/or caregiver agree upon recommended discharge plan? : Yes Family / Caregiver's ability to cope with chronic illness: : a. Adequate (ability to meet patient's medical needs, ensures patient attends medical appts.) Patient's current cognitive status: : Intermittently confused / memory changes Patient's ability to cope with chronic illness : d. No chronic illness Patient gives permission to discuss discharge plans with: (name, relationship and number) : Dillan Quan spouse [phone] Alternate discharge plan (if recommended plan not agreed upon by patient and/or caregiver): : plan for inpatient rehab Does the patient have the ability to pay for or attain post discharge needs / services? : Yes Functional screen assessment: : New onset in difficulty in gait, balance, or transfer difficulties Family / Caregiver's ability to cope with chronic illness: : a. Adequate (ability to meet patient's medical needs, ensures patient attends medical appts.) Physical Status: : Independent with ADL's Is there a likelihood that the patient will require additional services to return to the preadmission environment? : Yes Living Arrangements: : Home with Spouse/Significant Other Results of this evaluation have been discussed with: : Patient Results of this evaluation have been discussed with: : Family Patient with capacity for self-care or can be cared for in same environment as prior to hospitalization? : No Baseline cognitive status: : *Oriented to person, place, situation, time and present Physical environment modification needed / anticipated for discharge: : No Preadmission facility can/cannot provide post hospital level of care needs: : Can - at higher level of care than preadmission Medication Management: : Patient states can afford medications Planned post hospital services available for patient? : Yes Pharmacy name(s): : [facility] Planned post hospital services covered by insurance plan? : Yes Does Patient have transportation to get home and to follow-up medical appointments when discharged from the hospital? : Yes Would patient like to participate in any Care Coordination programs (if applicable): : Not applicable Does the patient have electricity at home? : Yes Does the patient have running water in their house? : Yes Equipment in use: : Walker - Rolling Equipment in use: : Cane - Quad Mental health screen: : No mental health history DCP Re-evaluation QUESTION: ANSWER Would patient like to participate in any Care Coordination programs (if applicable): : Not applicable PATIENT: ANDRY QUAN ENCOUNTER: [id number] MEDICAL RECORD#: [id number] ADMISSION DATE: 01/11/2021 DISCHARGE DATE: ATTENDING MD: AL ROSS : AGE: 80 MARITAL STATUS: M DC PLAN ID: [id number] FACILITY: [facility] PRINTED ON: 01/15/21 6:04 CT All edits/amendments must be made on the electronic document DICTATION DATE: 01/15/21603 ASSEMBLER SMALL PRODUCTS: DM 01/15/2104 RPT#: [id number] DC DATE: STATUS: ADM IN [facility] [address] [place] [address] END OF REPORT
--- NOTE | 2021-01-15 06:15 | MORECARE ---
CASE MANAGEMENT DISCHARGE SUMMARY PATIENT: ANDRY QUAN UNIT: [id number] ADM DATE: 01/11/21 AGE: 80 : 42 SEX: F ROOM/BED: D.5270 AUTHOR: JENAE,DOC PHYSICIAN: REFERRING PHYSICIAN: AL NOONAN MD DATE OF SERVICE: 01/15/21 Case Management Discharge Planning Summary COMMENTS ENTERED DATE: 01/15/21 5:58 CT COMMENT TYPE: Discharge Planning REVIEWER: Krysta Jack CM spoke with patient to complete initial dc planning assessment. CM educated patient on the CM role and verbal consent given by patient to complete assessment. Patient PCP José Patient lives at home with family. Patient is independent. At discharge patient plans to return home and feels this is a safe discharge. Patient would like to go to rehab before discharging home. MARV signed for [facility] Rehab, CM discussed availability of home health, rehab services, and medical equipment. Patient will have family to transport home. Patient denied known discharge needs at this time. CM will continue to follow and will assist as needed with dc plans/needs. DCP REVIEW SUMMARY ANTICIPATED D/C DATE: EXPECTED LOS : CASE STATUS: DCP Initiated INITIAL REVIEW: 01/11/2021 INITIAL REVIEWER: Krysta Jack FINAL DISCHARGE DISPOSITION: : FINAL REVIEWER: FINAL REVIEW DATE: DCP Focus Questions & Answers DCP Evaluation QUESTION: ANSWER Patient and/or caregiver agree upon recommended discharge plan? : Yes Patient's current cognitive status: : Intermittently confused / memory changes Patient's ability to cope with chronic illness : d. No chronic illness Patient gives permission to discuss discharge plans with: (name, relationship and number) : Dillan Quan spouse [phone] Family / Caregiver's ability to cope with chronic illness: : a. Adequate (ability to meet patient's medical needs, ensures patient attends medical appts.) Alternate discharge plan (if recommended plan not agreed upon by patient and/or caregiver): : plan for inpatient rehab Does the patient have the ability to pay for or attain post discharge needs / services? : Yes Functional screen assessment: : New onset in difficulty in gait, balance, or transfer difficulties Family / Caregiver's ability to cope with chronic illness: : a. Adequate (ability to meet patient's medical needs, ensures patient attends medical appts.) Physical Status: : Independent with ADL's Is there a likelihood that the patient will require additional services to return to the preadmission environment? : Yes Living Arrangements: : Home with Spouse/Significant Other Results of this evaluation have been discussed with: : Family Results of this evaluation have been discussed with: : Patient Patient with capacity for self-care or can be cared for in same environment as prior to hospitalization? : No Baseline cognitive status: : *Oriented to person, place, situation, time and present Physical environment modification needed / anticipated for discharge: : No Preadmission facility can/cannot provide post hospital level of care needs: : Can - at higher level of care than preadmission Medication Management: : Patient states can afford medications Planned post hospital services available for patient? : Yes Pharmacy name(s): : [facility] Planned post hospital services covered by insurance plan? : Yes Does Patient have transportation to get home and to follow-up medical appointments when discharged from the hospital? : Yes Would patient like to participate in any Care Coordination programs (if applicable): : Not applicable Does the patient have electricity at home? : Yes Does the patient have running water in their house? : Yes Equipment in use: : Cane - Quad Equipment in use: : Walker - Rolling Mental health screen: : No mental health history DCP Re-evaluation QUESTION: ANSWER Would patient like to participate in any Care Coordination programs (if applicable): : Not applicable PATIENT: ADNRY QUAN ENCOUNTER: [id number] MEDICAL RECORD#: [id number] ADMISSION DATE: 01/11/2021 DISCHARGE DATE: ATTENDING MD: AL ROSS : AGE: 80 MARITAL STATUS: M DC PLAN ID: [id number] FACILITY: [facility] PRINTED ON: 01/15/21 6:15 CT All edits/amendments must be made on the electronic document DICTATION DATE: 01/15/21614 AUTO DRIVER: MARTIN 01/15/21614 RPT#: [id number] DC DATE: STATUS: ADM IN [facility] [address] [place] [address] END OF REPORT
--- NOTE | 2021-01-15 06:17 | NUR ---
I have reviewed this patient and I concur with the Shift Assessment completed by the Licensed Practical Nurse today this shift.
[2021-01-15 06:45] LABS: ALBUMIN 3.9 g/dL (3.4-5.0); ALKALINE PHOSPHATASE 97 U/L (30-120); ALT (SGPT) 22 U/L (10-68); BILIRUBIN - TOTAL 0.97 mg/dL (0.2-1.3); CALC OSMOLALITY 274 mosm/kg (275-300); CALCIUM 8.8 mg/dL (8.5-10.1); CARBON DIOXIDE 24.5 mmol/L (21.0-32.0); CHLORIDE - SERUM 100 mmol/L (98-107); CREATININE - SERUM 0.6 mg/dL (0.6-1.3); GLUCOSE 179 mg/dL (74-106); MAGNESIUM - SERUM 2.2 mg/dL (1.8-2.4); POTASSIUM - SERUM 3.3 mmol/L (3.5-5.1); PROTEIN - SERUM 6.8 g/dL (6.4-8.2); SODIUM 136 mmol/L (136-145); UREA NITROGEN 10 mg/dL (7-18); eGFR NON AFRICAN AMERICAN > 90 mL/min (90-120)
[2021-01-15 07:36] LABS: BASOPHILS 0.3 % (0-2); EOSINOPHILS 3.5 % (0-7); HEMATOCRIT 39.9 % (36.0-48.0); HEMOGLOBIN 13.8 g/dL (12-16); IMMATURE GRANULOCYTES 0.5 % (0-5); LYMPHOCYTE ABS# 1.14 10x3/uL (1.18-3.74); LYMPHOCYTES 18.8 % (15-50); MCH 31.6 pg (26.0-34.0); MCHC 34.6 g/dL (31.0-37.0); MCV 91.3 fL (80.0-100.0); MEAN PLATELET VOLUME 9.7 fL (7.4-10.4); MONOCYTES 9.2 % (2-11); NEUTROPHILS 67.7 % (40-80); PLATELET COUNT 192 10x3/uL (130-400); RBC 4.37 10x6/uL (4.00-5.40); RDW 13.9 % (11.5-14.5); WBC 6.1 10x3/uL (4.8-10.8)
--- NOTE | 2021-01-15 08:00 | NUR ---
PT RECEIVED AWAKE AND ALERT IN BED. AT BEDSIDE. ORAL MEDS GIVEN, IV MEDS HELD DUE TO NO IV ACCESS.
[2021-01-15 08:29] VITALS: BP 121/88
--- NOTE | 2021-01-15 09:16 | NUR ---
PT ASKING FOR COLACE AND MIRILAX FOR CONSTIPATION. WILL NOTIFY PRODUCTION BROACHER.
--- NOTE | 2021-01-15 10:20 | NUR ---
PRESCREEN ORDER RECEIVED. PATIENT LOOKS LIKE SHE WOULD BE A GOOD CANDIDATE FOR INPATIENT REHAB. I WILL BEGIN HER ELECTRONIC SCREE. SHE WILL BE ACCEPTED TO REHAB WHEN APPROVALS ARE IN AND HER PHYSICIANS FEEL SHE IS APPROPRIATE FOR DISCHARGE. WE COULD TAKE HER LATER TODAY. THANK YOU FOR THIS REFERRAL. ALETHA VILLASEÑOR RN CLINICAL LIAISON, INPATIENT REHAB.
[2021-01-15] MEDS ORDERED: BRILINTA90 MG PO (10:46)
[2021-01-15] MEDS ORDERED: ASPIRIN81 MG PO (10:47)
--- NOTE | 2021-01-15 12:57 | MORECARE ---
CASE MANAGEMENT DISCHARGE SUMMARY PATIENT: ANDRY QUAN UNIT: [id number] ADM DATE: 01/11/21 AGE: 80 : 42 SEX: F ROOM/BED: D.0044 AUTHOR: JENAE,DOC PHYSICIAN: REFERRING PHYSICIAN: AL NOONAN MD DATE OF SERVICE: 01/15/21 Case Management Discharge Planning Summary COMMENTS ENTERED DATE: 01/15/21 12:52 CT COMMENT TYPE: Discharge Planning REVIEWER: Mona Holden IMM explained, signed, given, copy placed in MR. Family at bedside. All in agreement to discharge to inpatient rehab at [facility] today. ENTERED DATE: 01/15/21 5:58 CT COMMENT TYPE: Discharge Planning REVIEWER: Krysta Jack CM spoke with patient to complete initial dc planning assessment. CM educated patient on the CM role and verbal consent given by patient to complete assessment. Patient PCP José Patient lives at home with family. Patient is independent. At discharge patient plans to return home and feels this is a safe discharge. Patient would like to go to rehab before discharging home. MARV signed for [facility] Rehab, CM discussed availability of home health, rehab services, and medical equipment. Patient will have family to transport home. Patient denied known discharge needs at this time. CM will continue to follow and will assist as needed with dc plans/needs. DCP REVIEW SUMMARY ANTICIPATED D/C DATE: EXPECTED LOS : CASE STATUS: DCP Initiated INITIAL REVIEW: 01/11/2021 INITIAL REVIEWER: Krysta Jack FINAL DISCHARGE DISPOSITION: : FINAL REVIEWER: FINAL REVIEW DATE: DCP Focus Questions & Answers DCP Evaluation QUESTION: ANSWER Patient and/or caregiver agree upon recommended discharge plan? : Yes Patient's current cognitive status: : Intermittently confused / memory changes Patient's ability to cope with chronic illness : d. No chronic illness Patient gives permission to discuss discharge plans with: (name, relationship and number) : Dillan Quan spouse [phone] Family / Caregiver's ability to cope with chronic illness: : a. Adequate (ability to meet patient's medical needs, ensures patient attends medical appts.) Alternate discharge plan (if recommended plan not agreed upon by patient and/or caregiver): : plan for inpatient rehab Does the patient have the ability to pay for or attain post discharge needs / services? : Yes Functional screen assessment: : New onset in difficulty in gait, balance, or transfer difficulties Family / Caregiver's ability to cope with chronic illness: : a. Adequate (ability to meet patient's medical needs, ensures patient attends medical appts.) Physical Status: : Independent with ADL's Is there a likelihood that the patient will require additional services to return to the preadmission environment? : Yes Living Arrangements: : Home with Spouse/Significant Other Results of this evaluation have been discussed with: : Patient Results of this evaluation have been discussed with: : Family Patient with capacity for self-care or can be cared for in same environment as prior to hospitalization? : No Baseline cognitive status: : *Oriented to person, place, situation, time and present Physical environment modification needed / anticipated for discharge: : No Preadmission facility can/cannot provide post hospital level of care needs: : Can - at higher level of care than preadmission Medication Management: : Patient states can afford medications Planned post hospital services available for patient? : Yes Pharmacy name(s): : [facility] Planned post hospital services covered by insurance plan? : Yes Does Patient have transportation to get home and to follow-up medical appointments when discharged from the hospital? : Yes Would patient like to participate in any Care Coordination programs (if applicable): : Not applicable Does the patient have electricity at home? : Yes Does the patient have running water in their house? : Yes Equipment in use: : Walker - Rolling Equipment in use: : Cane - Quad Mental health screen: : No mental health history DCP Re-evaluation QUESTION: ANSWER Would patient like to participate in any Care Coordination programs (if applicable): : Not applicable PATIENT: ANDRY QUAN ENCOUNTER: [id number] MEDICAL RECORD#: [id number] ADMISSION DATE: 01/11/2021 DISCHARGE DATE: ATTENDING MD: AL ROSS : AGE: 80 MARITAL STATUS: M DC PLAN ID: [id number] FACILITY: [facility] PRINTED ON: 01/15/21 12:57 CT All edits/amendments must be made on the electronic document DICTATION DATE: 01/15/21 1257 DYE LAB TECHNICIAN: DM 01/15/21 1257 RPT#: [id number] DC DATE: STATUS: ADM IN [facility] [address] [place] [address] END OF REPORT
--- NOTE | 2021-01-15 13:06 | NUR ---
OT NOTE: PT SITTING ON EOB; FAMILY AT BESIDE; SPEECH MUCH MORE CLEAR THAN PREVIOUS DAYS. ABLE TO FOLLOW ALL SIMPLE COMMANDS BUT EASILY DISTRACTED.. CUES TO STAY ON TASK. ABLE TO AURE AND DOFF SOCKS WITH SET UP AND EXT TIME; AMB AROUND ROOM (PLACING OBSTACLES IN PTS PATH).. PT ABLE TO PROBLEM SOLVE GETTING THROUGH CLUTTERED AREA WITH ONLY 1 VC. PT SAFELY USING RW IN ROOM DURING AMB. TOILET TRASNFERS WITH SBA; HYGIENE AND CLOTHING MGMT WITH MIN ASSIST; RETURNED TO EOB WITH VERBAL CUES FOR WALKER MGMT AND STAYING INSIDE WALKER(PT GOT DISTRACTED WHEN PHYSICIAN CAME IN AND WAS NOT PAYING ATTN TO SAFETY WITH USE OF WALKER) OSIRIS MARVIN, OTR/L [id number]
--- NOTE | 2021-01-15 16:02 | NUR ---
OT NOTE: PT COMPLETED SUPINE TO SIT WITH SBA. PT COMPLETED SIT TO STANDS WITH SBA-CGA. PT COMPLETED SITTING BALANCE WITH FUNCTIONAL TASKS WITH SBA. PT COMPLETED BUE AROM EXERCISES AT EOB WITH SBA. [phone] ASHELY BLANCO COTA
--- NOTE | 2021-01-15 17:01 | NUR ---
REPORT CALLED TO [facility] DANIELS ON REHAB. PAPERS SIGNED. WITH US WE TRANSPORTED HER TO NEW ROOM.
--- NOTE | 2021-01-15 17:05 | MORECARE ---
CASE MANAGEMENT DISCHARGE SUMMARY PATIENT: ANDRY QUAN UNIT: [id number] ADM DATE: 01/11/21 AGE: 80 : 44 SEX: F ROOM/BED: D.2158 AUTHOR: JENAE,DOC PHYSICIAN: REFERRING PHYSICIAN: AL NOONAN MD DATE OF SERVICE: 01/15/21 Case Management Discharge Planning Summary COMMENTS ENTERED DATE: 01/15/21 12:52 CT COMMENT TYPE: Discharge Planning REVIEWER: Mona Holden IMM explained, signed, given, copy placed in MR. Family at bedside. All in agreement to discharge to inpatient rehab at [facility] today. ENTERED DATE: 01/15/21 5:58 CT COMMENT TYPE: Discharge Planning REVIEWER: Krysta Jack CM spoke with patient to complete initial dc planning assessment. CM educated patient on the CM role and verbal consent given by patient to complete assessment. Patient PCP José Patient lives at home with family. Patient is independent. At discharge patient plans to return home and feels this is a safe discharge. Patient would like to go to rehab before discharging home. MARV signed for [facility] Rehab, CM discussed availability of home health, rehab services, and medical equipment. Patient will have family to transport home. Patient denied known discharge needs at this time. CM will continue to follow and will assist as needed with dc plans/needs. DCP REVIEW SUMMARY ANTICIPATED D/C DATE: EXPECTED LOS : CASE STATUS: DCP Initiated INITIAL REVIEW: 01/11/2021 INITIAL REVIEWER: Krysta Jack FINAL DISCHARGE DISPOSITION: : FINAL REVIEWER: FINAL REVIEW DATE: DCP Focus Questions & Answers DCP Evaluation QUESTION: ANSWER Patient and/or caregiver agree upon recommended discharge plan? : Yes Patient's current cognitive status: : Intermittently confused / memory changes Patient's ability to cope with chronic illness : d. No chronic illness Patient gives permission to discuss discharge plans with: (name, relationship and number) : Dillan Quan spouse [phone] Family / Caregiver's ability to cope with chronic illness: : a. Adequate (ability to meet patient's medical needs, ensures patient attends medical appts.) Alternate discharge plan (if recommended plan not agreed upon by patient and/or caregiver): : plan for inpatient rehab Does the patient have the ability to pay for or attain post discharge needs / services? : Yes Functional screen assessment: : New onset in difficulty in gait, balance, or transfer difficulties Family / Caregiver's ability to cope with chronic illness: : a. Adequate (ability to meet patient's medical needs, ensures patient attends medical appts.) Physical Status: : Independent with ADL's Is there a likelihood that the patient will require additional services to return to the preadmission environment? : Yes Living Arrangements: : Home with Spouse/Significant Other Results of this evaluation have been discussed with: : Patient Results of this evaluation have been discussed with: : Family Patient with capacity for self-care or can be cared for in same environment as prior to hospitalization? : No Baseline cognitive status: : *Oriented to person, place, situation, time and present Physical environment modification needed / anticipated for discharge: : No Preadmission facility can/cannot provide post hospital level of care needs: : Can - at higher level of care than preadmission Medication Management: : Patient states can afford medications Planned post hospital services available for patient? : Yes Pharmacy name(s): : [facility] Planned post hospital services covered by insurance plan? : Yes Does Patient have transportation to get home and to follow-up medical appointments when discharged from the hospital? : Yes Would patient like to participate in any Care Coordination programs (if applicable): : Not applicable Does the patient have electricity at home? : Yes Does the patient have running water in their house? : Yes Equipment in use: : Walker - Rolling Equipment in use: : Cane - Quad Mental health screen: : No mental health history DCP Re-evaluation QUESTION: ANSWER Would patient like to participate in any Care Coordination programs (if applicable): : Not applicable PATIENT: ANDRY QUAN ENCOUNTER: [id number] MEDICAL RECORD#: [id number] ADMISSION DATE: 01/11/2021 DISCHARGE DATE: 01/15/2021 ATTENDING MD: AL ROSS : [id number] AGE: 80 MARITAL STATUS: M DC PLAN ID: [id number] FACILITY: [facility] PRINTED ON: 01/15/21 17:05 CT All edits/amendments must be made on the electronic document DICTATION DATE: 01/15/211704 DOUBLE BASS PLAYER: MARTIN 01/15/211704 RPT#: [id number] DC DATE:01/15/21 STATUS: DIS IN [facility] [address] [place] [address] END OF REPORT
--- NOTE | 2021-01-17 17:21 | MORECARE ---
CASE MANAGEMENT DISCHARGE SUMMARY PATIENT: ANDRY QUAN UNIT: [id number] ADM DATE: 01/11/21 AGE: 80 : 42 SEX: F ROOM/BED: D.8488 AUTHOR: JENAE,DOC PHYSICIAN: REFERRING PHYSICIAN: AL NOONAN MD DATE OF SERVICE: 01/17/21 Case Management Discharge Planning Summary COMMENTS ENTERED DATE: 01/15/21 12:52 CT COMMENT TYPE: Discharge Planning REVIEWER: Mona Holden IMM explained, signed, given, copy placed in . Family at bedside. All in agreement to discharge to inpatient rehab at [facility] today. ENTERED DATE: 01/15/21 5:58 CT COMMENT TYPE: Discharge Planning REVIEWER: Krysta Jack CM spoke with patient to complete initial dc planning assessment. CM educated patient on the CM role and verbal consent given by patient to complete assessment. Patient PCP José Patient lives at home with family. Patient is independent. At discharge patient plans to return home and feels this is a safe discharge. Patient would like to go to rehab before discharging home. MARV signed for [facility] Rehab, CM discussed availability of home health, rehab services, and medical equipment. Patient will have family to transport home. Patient denied known discharge needs at this time. CM will continue to follow and will assist as needed with dc plans/needs. DCP REVIEW SUMMARY ANTICIPATED D/C DATE: EXPECTED LOS : 0 CASE STATUS: DCP Initiated INITIAL REVIEW: 01/11/2021 INITIAL REVIEWER: Krysta Jack FINAL DISCHARGE DISPOSITION: 62 : Discharged/Trans to Rehab Facility Including Distinct Units of a Hospital FINAL REVIEWER: Krysta Jack FINAL REVIEW DATE: 01/17/2021 DCP Focus Questions & Answers DCP Evaluation QUESTION: ANSWER Family / Caregiver's ability to cope with chronic illness: : a. Adequate (ability to meet patient's medical needs, ensures patient attends medical appts.) Patient gives permission to discuss discharge plans with: (name, relationship and number) : Dillan Quan spouse [phone] Patient's ability to cope with chronic illness : d. No chronic illness Patient's current cognitive status: : Intermittently confused / memory changes Patient and/or caregiver agree upon recommended discharge plan? : Yes Physical Status: : Independent with ADL's Family / Caregiver's ability to cope with chronic illness: : a. Adequate (ability to meet patient's medical needs, ensures patient attends medical appts.) Functional screen assessment: : New onset in difficulty in gait, balance, or transfer difficulties Does the patient have the ability to pay for or attain post discharge needs / services? : Yes Alternate discharge plan (if recommended plan not agreed upon by patient and/or caregiver): : plan for inpatient rehab Living Arrangements: : Home with Spouse/Significant Other Is there a likelihood that the patient will require additional services to return to the preadmission environment? : Yes Baseline cognitive status: : *Oriented to person, place, situation, time and present Patient with capacity for self-care or can be cared for in same environment as prior to hospitalization? : No Results of this evaluation have been discussed with: : Family Results of this evaluation have been discussed with: : Patient Preadmission facility can/cannot provide post hospital level of care needs: : Can - at higher level of care than preadmission Physical environment modification needed / anticipated for discharge: : No Medication Management: : Patient states can afford medications Pharmacy name(s): : [facility] Planned post hospital services available for patient? : Yes Does Patient have transportation to get home and to follow-up medical appointments when discharged from the hospital? : Yes Planned post hospital services covered by insurance plan? : Yes Would patient like to participate in any Care Coordination programs (if applicable): : Not applicable Does the patient have electricity at home? : Yes Does the patient have running water in their house? : Yes Equipment in use: : Cane - Quad Equipment in use: : Walker - Rolling Mental health screen: : No mental health history DCP Re-evaluation QUESTION: ANSWER Would patient like to participate in any Care Coordination programs (if applicable): : Not applicable PATIENT: ANDRY QUAN ENCOUNTER: [id number] MEDICAL RECORD#: [id number] ADMISSION DATE: 01/11/2021 DISCHARGE DATE: 01/15/2021 ATTENDING MD: AL ROSS : AGE: 80 MARITAL STATUS: M DC PLAN ID: [id number] FACILITY: [facility] PRINTED ON: 01/17/21 17:21 CT All edits/amendments must be made on the electronic document DICTATION DATE: 01/17/211720 EVENTS TRAFFIC CONTROLLER: MARTIN 01/17/211720 RPT#: [id number] DC DATE:01/15/21 STATUS: DIS IN [facility] [address] [place] [address] END OF REPORT
== END 2021-01-15 17:02 | DRG 65 ==
LOC: D.ER 12:17 → D.M2 17:05 → D.ICU 17:05 → D.M2 01-12 18:02
PROVIDERS: Emergency Medicine; ADMIT Family Medicine; ATTEND Family Medicine
DX: I63.511 Cerebral infarction due to unspecified occlusion or stenosis of right middle cerebral artery (principal); G81.94 Hemiplegia, unspecified affecting left nondominant side; I70.8 Atherosclerosis of other arteries; E11.65 Type 2 diabetes mellitus with hyperglycemia; I10 Essential (primary) hypertension; I25.10 Atherosclerotic heart disease of native coronary artery without angina pectoris; R47.1 Dysarthria and anarthria; I65.29 Occlusion and stenosis of unspecified carotid artery; Z86.73 Personal history of transient ischemic attack (TIA), and cerebral infarction without residual deficits

== ENCOUNTER 2021-01-15 16:47 | Inpatient (IN) | payer MEDICARE, OTHER ==
[~2021-01-15] VITALS: Ht 165.1 cm; Wt 59.0 kg
[~2021-01-15 16:47] MED LIST changes: +ASPIRIN81 MG PO; +BRILINTA90 MG PO; +HYDROCODON-ACE1 EA10 PO
[2021-01-15 17:03] VITALS: BP 211/91; BMI 21.6
[2021-01-15 21:18] VITALS: BP 211/91
[2021-01-16 10:19] VITALS: BP 190/85
--- NOTE | 2021-01-16 12:05 | NUR ---
SITTING IN WC FOR LUNCH. FAMILY VISITING. DENIES NEEDS. BP PATCH PLACED PER ORDER. CALL LIGHT ON BED.
[2021-01-16 14:59] LABS: BASOPHILS 0.4 % (0-2); EOSINOPHILS 2.3 % (0-7); HEMATOCRIT 41.1 % (36.0-48.0); HEMOGLOBIN 14.6 g/dL (12-16); IMMATURE GRANULOCYTES 0.3 % (0-5); LYMPHOCYTE ABS# 1.28 10x3/uL (1.18-3.74); LYMPHOCYTES 17.7 % (15-50); MCH 32.2 pg (26.0-34.0); MCHC 35.5 g/dL (31.0-37.0); MCV 90.7 fL (80.0-100.0); MEAN PLATELET VOLUME 10.3 fL (7.4-10.4); MONOCYTES 7.2 % (2-11); NEUTROPHIL ABS# 5.22 10x3/uL (1.56-6.13); NEUTROPHILS 72.1 % (40-80); PLATELET COUNT 215 10x3/uL (130-400); RBC 4.53 10x6/uL (4.00-5.40); RDW 13.8 % (11.5-14.5); WBC 7.2 10x3/uL (4.8-10.8)
[2021-01-16 15:04] LABS: ANION GAP 13.2 mmol/L (8-16); CALCIUM 9.3 mg/dL (8.5-10.1); CARBON DIOXIDE 25.4 mmol/L (21.0-32.0); POTASSIUM - SERUM 3.6 mmol/L (3.5-5.1)
[2021-01-16 15:09] LABS: CREATININE - SERUM 0.8 mg/dL (0.6-1.3)
--- NOTE | 2021-01-16 18:52 | NUR ---
BEDSIDE REPORT COMPLETE. RECEIVED PT LYING IN BED. ALERT AND ORIENTED X4. CATAPRES PATCH TO RIGHT CHEST DATED 01/16. NO IV OR OXYGEN. NO DISTRESS NOTED. DENIES ANY NEEDS OR PAIN. CALL LIGHT AND WATER WITHIN REACH. FALL PRECAUTIONS IN PLACE. CPOC
[2021-01-17 00:25] VITALS: BP 164/82
--- NOTE | 2021-01-17 01:07 | NUR ---
PT LYING IN BED ON LEFT SIDE EYES CLOSED RESTING. RR EVEN AND UNLABORED. CALL LIGHT WITHIN REACH
--- NOTE | 2021-01-17 04:11 | NUR ---
PT LYING IN BED ON RIGHT SIDE EYES CLOSED RESTING. NO DISTRESS NOTED. CALL LIGHT WITHIN REACH
[2021-01-17 08:10] VITALS: Ht 165.1 cm; Wt 59.0 kg
[2021-01-17 11:46] VITALS: BP 178/84
--- NOTE | 2021-01-17 16:10 | NUR ---
IS HAVING SOME N/V. FAMILY REPORTS SHE HAS N/V OFTEN WHEN SHE IS AROUND TOO MUCH STIMULATION. WITH PT.
[2021-01-17 19:00] VITALS: BP 185/86
--- NOTE | 2021-01-17 21:21 | NUR ---
BEDSIDE REPORT COMPLETED. PT SITTING UP IN BED AWAKE. ALERT AND ORIENTED X4. DENIES ANY PAIN OR NEEDS. HS MEDS ADMININSTERED WHOLE WITHOUT DIFFICULTY. NO DISTRESS NOTED. NO IV OR OXYGEN NOTED. PAULETTE ALARM ON AND FUNCTIONING PROPERLY. FALL PRECAUTIONS IN PLACE. CALL LIGHT WITHIN REACH. CPOC
--- NOTE | 2021-01-18 03:04 | NUR ---
PT LYING IN BED ON RIGHT SIDE EYES CLOSED RESTING. RR EVEN AND UNLABORED. CALL LIGHT WITHIN REACH. PAULETTE ALARM ON.
--- NOTE | 2021-01-18 06:36 | NUR ---
ASSISTED PT TO RESTROOM WITH SBA USING WALKER. DENIES ANY NEEDS OR PAIN. NO DISTRESS NOTED. INSTRUCTED TO USE PULL CORD WHEN FINISHED. PT VERBALIZED UNDERSTANDING. "GI BOMB" PROVIDED THIS AM D/T CONSTIPATION.
[2021-01-18 08:00] VITALS: BP 171/79
[2021-01-18 08:19] LABS: BASOPHILS 0.3 % (0-2); EOSINOPHILS 1.8 % (0-7); HEMATOCRIT 43.9 % (36.0-48.0); HEMOGLOBIN 15.5 g/dL (12-16); IMMATURE GRANULOCYTES 0.4 % (0-5); LYMPHOCYTE ABS# 1.18 10x3/uL (1.18-3.74); LYMPHOCYTES 16.5 % (15-50); MCH 31.8 pg (26.0-34.0); MCHC 35.3 g/dL (31.0-37.0); MEAN PLATELET VOLUME 10.4 fL (7.4-10.4); MONOCYTES 7.8 % (2-11); NEUTROPHIL ABS# 5.24 10x3/uL (1.56-6.13); NEUTROPHILS 73.2 % (40-80); RBC 4.88 10x6/uL (4.00-5.40); WBC 7.2 10x3/uL (4.8-10.8)
[2021-01-18 08:20] LABS: PLATELET COUNT 261 10x3/uL (130-400)
[2021-01-18 08:23] LABS: ANION GAP 17.3 mmol/L (8-16); CALCIUM 9.6 mg/dL (8.5-10.1); CARBON DIOXIDE 25.6 mmol/L (21.0-32.0); CREATININE - SERUM 0.8 mg/dL (0.6-1.3); POTASSIUM - SERUM 3.9 mmol/L (3.5-5.1)
--- NOTE | 2021-01-18 09:50 | NUR ---
SHE IS USING THE WALKER TO GET TO THE BATHROOM. HE IS AT THE BEDSIDE. SHE HAS BRUISING TO HER LEFT BUTTOCK, FROM A PREVIOUS FALL. THE CALL LIGHT IS WITHIN REACH AND THE BED ALARM IS ON.
[2021-01-18 19:56] VITALS: BP 141/73
--- NOTE | 2021-01-19 07:00 | NUR ---
WHEN ROUNDING THIS MORNING HER STATES "SHE IS GETTING WORSE". SHE IS ALERT, TALKING, SHE IS SLOW TO ANSWER QUESTIONS. FORGETS THE NEXT STEPS IN GETTING OUT OF BED TO USE THE WALKER TO GO TO THE BATHROOM. 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 THE CALL LIGHT IS WITHIN REACH AND THE BED IS ON. HER IS AT THE BEDSIDE.
[2021-01-19 07:45] VITALS: BP 162/69
--- NOTE | 2021-01-19 08:30 | NUR ---
SHE IS SETTING ON THE SIDE OF THE BED EATING BREAKFAST. SHE IS MORE ALERT THAN BEFORE. HER IS AT THE BEDSIDE. THE CALL LIGHT IS WITHIN REACH AND THE BED ALARM IS ON.
--- NOTE | 2021-01-19 13:50 | NUR ---
BACK FROM THE CT AND MRI. SHE IS ALERT, TALKING. 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 THE CALL LIGHT IS WITHIN REACH AND THE BED ALARM IS ON.
--- NOTE | 2021-01-19 21:00 | NUR ---
ASSISTED PT TO THE RESTROOM. SHE IS CONFUSED AND FORGETS HOW TO USE THE WALKER. AFTER ASSITING HER BACK TO BED, I HAD HER SIT ON THE EDGE OF THE BED TO TAKE HER NIGHTTIME MEDICATIONS. SHE WAS ABLE TO SWALLOW THE MUCINEX BUT UNABLE TO SWALLOW THE MEDICATIONS AFTER THAT. THE REMAINING MEDICATIONS WERE CRUSHED AND SHE TOOK THEM IN APPLESAUCE. HELPED HER GET COMFORTABLE AND READY FOR BED. SHE DENIES PAIN OR NEEDS. SIDE RAILS UP X 2, CALL LIGHT WITHIN REACH, BED ALARM ON AND BED IN LOWEST POSITION.
[2021-01-19 21:22] VITALS: BP 131/58
[2021-01-20 07:48] LABS: BASOPHILS 0.3 % (0-2); EOSINOPHILS 1.4 % (0-7); HEMATOCRIT 39.5 % (36.0-48.0); HEMOGLOBIN 14.2 g/dL (12-16); IMMATURE GRANULOCYTES 0.5 % (0-5); LYMPHOCYTES 16.5 % (15-50); MCH 32.1 pg (26.0-34.0); MCHC 35.9 g/dL (31.0-37.0); MCV 89.4 fL (80.0-100.0); MEAN PLATELET VOLUME 10.1 fL (7.4-10.4); MONOCYTES 9.3 % (2-11); PLATELET COUNT 246 10x3/uL (130-400); RBC 4.42 10x6/uL (4.00-5.40); RDW 13.9 % (11.5-14.5); WBC 6.7 10x3/uL (4.8-10.8)
[2021-01-20 08:02] LABS: CALC OSMOLALITY 265 mosm/kg (275-300); CALCIUM 9.1 mg/dL (8.5-10.1); CARBON DIOXIDE 25.5 mmol/L (21.0-32.0); CHLORIDE - SERUM 95 mmol/L (98-107); CREATININE - SERUM 0.6 mg/dL (0.6-1.3); POTASSIUM - SERUM 3.9 mmol/L (3.5-5.1); SODIUM 132 mmol/L (136-145); UREA NITROGEN 12 mg/dL (7-18); eGFR NON AFRICAN AMERICAN > 90 mL/min (90-120)
[2021-01-20 08:03] LABS: GLUCOSE 123 mg/dL (74-106)
[2021-01-20 11:25] VITALS: BP 136/57
--- NOTE | 2021-01-20 13:33 | NUR ---
Nutrition Re-Assessment: Diet: Diabetic Soft Mech Thin Liquids PO intake: ~19% average x last 6 meals. Patient was in bathroom at time of RD visit. She had not eaten much off of her lunch tray but PT stated that she was not quite finished eating. Last BM: 01/19/21 Wt: 130# (01/17/21) Meds noted: HCTZ, metformin, glimepiride Labs noted: Na 132(L), Glu 123(H) Estimated nutrition needs and nutrition diagnosis remain unchanged from initial nutrition assessment at this time. Patient is not currently progressing towards meeting nutrition goals. Recommendations/Interventions: -Recommend continue current PO diet/or per DOCUMENTATION ENGINEER recommendations. -Will continue to honor food preferences within diet restrictions. -Will add glucerna TID. -RD will follow-up 01/25/21.
--- NOTE | 2021-01-20 16:27 | NUR ---
CARE TEAM MEETING: PATIENT ADMITTED TO REHAB FROM [facility].DISCHARGE PLANS ARE FOR PATIENT TO RETURN HOME WITH HER SPOUSE. PATIENT TENATIVE DC DATE IS 01/29/21. WILL CONTINUE TO FOLLOW WITH PATIENT AND WILL ASSIST WITH DC NEEDS.
[2021-01-20 21:27] VITALS: BP 137/68
--- NOTE | 2021-01-20 22:00 | NUR ---
HER BED ALARM WAS GOING OFF. I GET INTO HER ROOM I NOTICE SHE HAS HER PANTS AND BRIEF DOWN AND IS BENDING OVER ATTEMPTING TO USE THE TRASH CAN A TOILET. SHE STATES IM SORR I WASNT PATIENT BUT I HAD TO GO TO THE BATHROOM. ASSISTED HER TO THE BATHROOM. SHE HAD A SMALL BOWEL MOVEMENT AND VOIDED. ASSISTED HER BACK TO BED. BED IS LOW, BED ALARM ON AND CALL LIGHT WITHIN REACH. SHE DENIES NEEDS OR PAIN. 0000 PT ATTEMPTING THE GET OUT OF BED. BED ALARM GOING OFF. SHE STATES SHE NEEDS TO GO TO THE BATHROOM. ASSISTED TO BATHROOM. SHE WAS INCONTINENT OF URINE IN HER BRIEF AND HER PANTS DID GET WET WELL. CHANGED BRIEF AND CLEANED HER UP. SHE FINISHED VOIDING IN THE TOILET. PLACED HER CLOTHES IN THE WASHER. SHE WISHES TO WEAR HER GOWN AND BRIEF TO BED INSTEAD OF A HOSPITAL GOWN. ASSISTED BACK TO BED. SHE DENIES PAIN OR NEEDS. BED ALARM ON, CALL LIGHT IS WITHIN REACH.
[2021-01-21 08:10] VITALS: BP 149/69
[2021-01-21 19:55] VITALS: BP 153/71
--- NOTE | 2021-01-21 21:00 | NUR ---
PATIENT IS ALERT. BED ALARM ON. CALL LIGHT WITHIN REACH. VOICES NO NEEDS AT THIS TIME. WILL CONTINUE WITH PLAN OF CARE
--- NOTE | 2021-01-22 00:19 | NUR ---
PATIENT HELPED TO BATHROOM. STAND BY ASST FROM BED TO WHEELCHAIR
--- NOTE | 2021-01-22 02:48 | NUR ---
PATIENT LYING ON RIGHT SIDE. EYES CLOSED. RESPIRATIONS EVEN AND UNLABORED. BED ALARM ON. CALL LIGHT WITHIN REACH
[2021-01-22 07:15] LABS: CALC OSMOLALITY 267 mosm/kg (275-300); CALCIUM 9.1 mg/dL (8.5-10.1); CARBON DIOXIDE 27.4 mmol/L (21.0-32.0); CHLORIDE - SERUM 96 mmol/L (98-107); CREATININE - SERUM 0.7 mg/dL (0.6-1.3); GLUCOSE 161 mg/dL (74-106); POTASSIUM - SERUM 3.4 mmol/L (3.5-5.1); SODIUM 133 mmol/L (136-145); UREA NITROGEN 11 mg/dL (7-18); eGFR NON AFRICAN AMERICAN 86 mL/min (90-120)
[2021-01-22 07:17] LABS: BASOPHILS 0.3 % (0-2); EOSINOPHILS 1.7 % (0-7); HEMATOCRIT 40.7 % (36.0-48.0); HEMOGLOBIN 14.6 g/dL (12-16); IMMATURE GRANULOCYTES 0.3 % (0-5); LYMPHOCYTE ABS# 0.95 10x3/uL (1.18-3.74); LYMPHOCYTES 15.9 % (15-50); MCH 31.8 pg (26.0-34.0); MCHC 35.9 g/dL (31.0-37.0); MCV 88.7 fL (80.0-100.0); MONOCYTES 9.7 % (2-11); NEUTROPHIL ABS# 4.31 10x3/uL (1.56-6.13); NEUTROPHILS 72.1 % (40-80); PLATELET COUNT 249 10x3/uL (130-400); RBC 4.59 10x6/uL (4.00-5.40)
[2021-01-22 08:00] VITALS: BP 158/73
--- NOTE | 2021-01-22 08:00 | NUR ---
PT RESTING IN BED WITH EYES OPEN CALL LIGHT IN REACH WILL MONITER
--- NOTE | 2021-01-22 17:26 | NUR ---
PT RESTING IN BED WITH EYES OPEN CALL LIGHT IN REACH NO PROBLEMS WILL MONITER
[2021-01-22 20:18] VITALS: BP 142/64
--- NOTE | 2021-01-22 20:31 | NUR ---
PATIENT RECEIVED SITTING UP IN BED. PATIENT STANDBY ASSIST INTO BATHROOM. VOID ONLY. PATIENT RETURNED TO LOW BED. MEDICATIONS GIVEN SEPERATELY. MUCINEX CAUSED NAUSEA. PATIENT HAD PHLEGM VOMIT. PATIENT FELT BETTER. ALARM ON. CALL LIGTH ON. WILL CONTINUE TO MONITOR.
--- NOTE | 2021-01-23 00:01 | NUR ---
PATIENT EYES CLOSED. RESPIRATIONS 18 & EVEN. BED LOW. ALARM ON. CALL LIGHT WITHIN REACH. WILL CONTINUE TO MONITOR.
--- NOTE | 2021-01-23 01:00 | NUR ---
I have reviewed this patient and I concur with the Shift Assessment completed by the Licensed Practical Nurse today this shift.
--- NOTE | 2021-01-23 08:42 | NUR ---
SHE IS SETTING UP ON THE SIDE OF THE BED TO TAKE HER MEDICATIONS. SHE DID NOT HAVE ANY PROBLEMS SWALLOWING. THE IS AT THE BEDSIDE. THE CALL LIGHT IS WITHIN REACH AND THE BED ALARM IS ON.
[2021-01-23 09:32] VITALS: BP 135/55
--- NOTE | 2021-01-23 17:27 | NUR ---
PATIENT VOMITED 300 CC OF UNDIGESTED FOOD.
[2021-01-23 19:11] VITALS: BP 166/54
--- NOTE | 2021-01-23 19:38 | NUR ---
PATIENT RECEIVED LAYING DOWN. NAUSEA BETTER. VITAL SIGNS & ASSESSMENT DONE. BED LOW. ALARM ON. CALL LIGHT WITHIN REACH. WILL CONTINUE TO MONITOR.
--- NOTE | 2021-01-24 03:32 | NUR ---
PATIENT USED CALL LIGHT FOR ASSIST. PATIENT AMBULATED USING ROLLLING WALKER TO BATHROOM. STANDBY ASSIST. VOID ONLY. WASHED HANDS & RETURNED TO LOW BED. ALARM ON. CALL LIGHT WITHIN REACH. WILL CONTINUE TO MONITOR.
--- NOTE | 2021-01-24 05:17 | NUR ---
I have reviewed this patient and I concur with the Shift Assessment completed by the Licensed Practical Nurse today this shift.
[2021-01-24 07:30] VITALS: BP 136/79
--- NOTE | 2021-01-24 08:00 | NUR ---
SHE IS ALERT, TALKING. SHE STATES SHE FEELS BETTER THIS MORNING. THE BED ALARM IS ON, SHE WILL TRY TO GET OUT OF THE BED AND SET THE ALARM OFF. HER IS AT THE BEDSIDE. THE CALL LIGHT IS Huan Xiong.
[2021-01-24 19:00] VITALS: BP 147/76
--- NOTE | 2021-01-24 19:19 | NUR ---
PATIENT RECEIVED SITTING UP IN BED. ASSESSMENT & VITAL SIGNS DONE. BED LOW. CALL LIGHT & BEDSIDE TABLE WITHIN REACH. ALARM ON. WILL CONTINUE TO MONITOR.
--- NOTE | 2021-01-25 02:19 | NUR ---
PATIENT EYES CLOSED. RESPIRATIONS 18 & EVEN. BED LOW. ALARM ON. CALL LIGHT & BEDSIDE TABLE WITHIN REACH. WILL CONTINUE TO MONITOR.
--- NOTE | 2021-01-25 03:31 | NUR ---
I have reviewed this patient and I concur with the Shift Assessment completed by the Licensed Practical Nurse today this shift.
[2021-01-25 07:06] LABS: BASOPHILS 0.3 % (0-2); EOSINOPHILS 1.1 % (0-7); HEMATOCRIT 39.6 % (36.0-48.0); HEMOGLOBIN 13.9 g/dL (12-16); IMMATURE GRANULOCYTES 0.4 % (0-5); LYMPHOCYTE ABS# 1.52 10x3/uL (1.18-3.74); LYMPHOCYTES 19.4 % (15-50); MCH 31.2 pg (26.0-34.0); MCHC 35.1 g/dL (31.0-37.0); MEAN PLATELET VOLUME 10.1 fL (7.4-10.4); MONOCYTES 8.6 % (2-11); NEUTROPHILS 70.2 % (40-80); PLATELET COUNT 261 10x3/uL (130-400); RBC 4.45 10x6/uL (4.00-5.40); WBC 7.8 10x3/uL (4.8-10.8)
[2021-01-25 07:20] LABS: CALC OSMOLALITY 268 mosm/kg (275-300); CARBON DIOXIDE 27.7 mmol/L (21.0-32.0); CHLORIDE - SERUM 95 mmol/L (98-107); CREATININE - SERUM 0.5 mg/dL (0.6-1.3); GLUCOSE 115 mg/dL (74-106); POTASSIUM - SERUM 3.5 mmol/L (3.5-5.1); SODIUM 134 mmol/L (136-145); UREA NITROGEN 13 mg/dL (7-18); eGFR NON AFRICAN AMERICAN > 90 mL/min (90-120)
--- NOTE | 2021-01-25 07:35 | NUR ---
PT RESTING IN BED WITH EYES OPEN CALL LIGHT IN REACH WILL MONITER
[2021-01-25 08:09] VITALS: BP 156/63
--- NOTE | 2021-01-25 12:23 | NUR ---
NUTRITION FOLLOW UP: INTERVIEW: Met with patient's this AM. Patient in therapy. Her stated that she has been eating well with a good appetite. He statd she has not had any issues with nausea or vomiting today, denied new chewing/swallowing problems, and denied any diarrhea. DIET: Diabetic Diet-Mechanical Soft w/ Thin Liquids PO INTAKE: 67% avg for last 9 meals SUPPLEMENT: Glucerna with Breakfast and Dinner WEIGHT: 01/15-130 lbs; 01/17-130 lbs (no recent weight changes) BM: x 1 on 01/23 SIG MEDS: KCl, Colace, HCTZ, Fish Oil, Metformin, Pepcid, Miralax SIG LABS: Na-134(L), Cl-95(L), Cr-0.5(L) RECOMMENDATIONS: -Continue DM mechanical soft diet as tolerated/per HEAD OF MARKETING ADOMETRY -Continue Glucerna BID RD to follow up within 7 days
--- NOTE | 2021-01-25 17:58 | NUR ---
PT RESTING IN BED WITH EYES OPEN CALL LIGHT IN REACH WILL MONITER
--- NOTE | 2021-01-25 19:22 | NUR ---
PT IN BED ASLEEP, NO NEEDS NOTED, FLUIDS/CL WITHIN REACH
[2021-01-25 21:44] VITALS: BP 150/66
--- NOTE | 2021-01-26 07:19 | NUR ---
PT RESTING IN BED WITH EYES OPEN CALL LIGHT IN REACH WILL MONITER
[2021-01-26 08:00] VITALS: BP 133/63
--- NOTE | 2021-01-26 18:25 | NUR ---
PT RESTING IN BED WITH EYES OPEN CALL LIGHT IN REACH WILL MONITER
[2021-01-26 19:00] VITALS: BP 134/70
--- NOTE | 2021-01-27 01:21 | NUR ---
PTS BED ALARM WENT OFF AND WHEN I GOT THERE PT WAS ALREADY IN THE BATHROOM. SHE FORGOT TO USE HER WALKER. SHE APOLOGIZED FOR NOT CALLING FIRST BUT STATES SHE HAD TO GET THERE FAST OR SHE WOULD HAVE URINATED ON HERSELF. SHE DENIES BURNING OR PAINFUL URINATION AND NO BLOOD WAS PRESENT IN TOILET. PLACED THE WALKER IN FRONT OF HER AND SHE AMBULATED BACK TO HER BED WITH STANDBY ASSIST. HER BED IS LOW, BED ALARM ON AND CALL LIGHT IS WITHIN REACH. SHE DENIES NEEDS OR PAIN.
[2021-01-27 07:54] VITALS: BP 123/48
--- NOTE | 2021-01-27 08:26 | NUR ---
PATIENT SITTING UP ON THE SIDE OF THE BED. IN ROOM. BED ALARM ON. CALL LIGHT WITHIN REACH. VOICES NO NEEDS AT THIS TIME. WILL COTNINUE WITH PLAN OF CARE
--- NOTE | 2021-01-27 12:00 | NUR ---
I have reviewed this patient and I concur with the Shift Assessment completed by the Licensed Practical Nurse today this shift.
--- NOTE | 2021-01-27 13:21 | NUR ---
PATIENT HELPED INTO BATHROOM WITH ONE ASST AND WHEELED WALKER. UNSTEADY GAIT
--- NOTE | 2021-01-27 16:24 | NUR ---
CARE TEAM MEETING: PATIENT IS PROGRESSING WELL IN THERAPY. HER TENTIVE DC DATE IS 01/29/21. WILL CONTINUE TO FOLLOW WITH PATIENT AND WILL ASSIST WITH DC NEEDS.
[2021-01-27 21:29] VITALS: BP 120/52
--- NOTE | 2021-01-28 01:00 | NUR ---
ASSISTED PT TO THE RESTROOM WHERE SHE VOIDED AND THEN ASSISTED HER BACK TO BED. BRIEF CHANGED DUE TO INCONTINENCE. LINENS ARE DRY. SHE DENIES PAIN OR NEEDS AT THIS TIME. BED IS LOW, ALARM ON AND CALL LIGHT IS NEXT TO HER.
[2021-01-28 07:49] VITALS: BP 114/56
--- NOTE | 2021-01-28 08:22 | NUR ---
SHE IS SETTING ON THE SIDE OF THE BED EATING BREAKFAST. DENIES ANY PAIN OR NEEDS AT THIS TIME. HER IS AT THE BEDSIDE. THE CALL LIGHT IS WTIHIN REACH AND THE BED ALARM IS ON.
[2021-01-28] MEDS ORDERED: Altace PO (09:28)
[2021-01-28] MEDS ORDERED: PLAVIX75 MG PO (09:29)
--- NOTE | 2021-01-28 09:31 | RHP ---
PATIENT: ANDRY BROWNE MEDICAL RECORD: [id number] ACCOUNT: [id number] [facility] ADMISSION DATE: 01/15/21 REHABILITATION HISTORY AND PHYSICAL EXAMINATION POST ADMISSION PHYSICIAN EXAMINATION ADMITTING DIAGNOSIS: Right parietal CVA. HISTORY OF PRESENT ILLNESS: The patient admitted secondary to a right parietal lobe CVA. She is a 80-year-old female patient resided at home with her spouse, was independent with a platform walker and cueing. The patient had a history of TIAs and diabetes in the past, presented to the ED on 01/11 with complaints of confusion, disorientation. She was on a number of medications that apparently she had missed over the previous couple of days including metoprolol, aspirin, Plavix, Mucinex, Amaryl and Robaxin. The morning that she woke up, she was unable to clearly express herself. She speaks in a very low tone. She does not answer questions very appropriately. She does not clearly have any lateralizing signs, although there may be a little bit of right facial droop. She had a TIA in the past with the last being about a year ago. She was on aspirin and Plavix. Brain MRI showed an acute/subacute infarct in the right parietal lobe. She was admitted to the hospital for further evaluation. Active diagnosis during her stay included acute/subacute infarct in the right parietal lobe with acute encephalopathy, diabetes, coronary artery disease, hypertension and dysphagia. She is receiving speech therapy and a modified diet at this time. She saw neurology and cardio during her stay. She did have a fall on 01/12 which she developed a posterior parietal scalp hematoma without underlying skull involvement. She is a high fall risk. She is having dysarthria, misarticulation, difficulty with being able to name things, so speech therapy is working with her. She is noted to have some mild impairment in her left hand coordination and shoulder strength. She is sit to stand mod assist, max assist for standing with poor balance. Bed mobility mod assist. Dressing mod assist. She is sit to stand mod assist. She does have some poor balance. She has still not progressed to be on her home medications and so she is still on some IV medications for her hypertension, diabetes. She will not be able to remain on IV labetalol at home, though. Her electrolytes are being monitored closely. She will require intensive inpatient therapy to get back to her prior level of functioning. Comorbidities include acute encephalopathy, coronary artery disease, chronic pain, confusion, CVA decrease in physical functioning, diabetes, dysarthria, hypertension, hyperglycemia, hypokalemia, left-sided weakness, recurrent falls, slurred speech. PAST MEDICAL HISTORY: Significant for TIAs, diabetes, hypertension. She has had colon problems, arthritis, cataracts and TMJ. PAST SURGICAL HISTORY: Includes colon resection, right carotid endarterectomy, cholecystectomy and left total knee. ALLERGIES: LASIX. CURRENT MEDICATIONS: Colace she is on 400 mg daily. She is on hydrochlorothiazide 25 mg daily, omega-3 one cap daily. She is on chlorpheniramine 4 mg b.i.d. p.r.n., aspirin chewable 81 mg daily, metformin 1000 mg b.i.d., glimepiride 2 mg before meals, Brilinta 90 mg b.i.d., metoprolol 12.5 mg b.i.d., guaifenesin 600 mg b.i.d., Pepcid 20 mg b.i.d. She is on [place] 5/325 one tab q.6 hours p.r.n. and polyethylene glycol 17 grams in 8 ounces of HISTORY AND PHYSICAL [id number] ANDRY BROWNE water daily. HABITS: No history of alcohol or tobacco use. FAMILY HISTORY: Noncontributory. SOCIAL HISTORY: The patient hopes to return back home and get back to her prior level of functioning. REVIEW OF SYSTEMS: GENERAL: She does complain of weakness and fatigue. HEENT: She denies cold, cough or congestion. CARDIOVASCULAR: Denies any chest pain. PHYSICAL EXAMINATION: VITAL SIGNS: Stable, afebrile, but her blood pressure is noted to be 211/91. GENERAL: An elderly female in no acute distress, alert upon exam. HEENT: Normocephalic and atraumatic. Mucosa moist. NECK: Supple, no lymphadenopathy. LUNGS: Clear in upper [place]. No wheezes or rales. HEART: Regular rate and rhythm. No murmurs, rubs or gallops. ABDOMEN: Soft, benign, nondistended. Positive bowel sounds times 4. EXTREMITIES: No clubbing, cyanosis or edema. NEUROLOGIC: She is slow to mentate. LABORATORY DATA: Have not been received today. ASSESSMENT: This is a 80-year-old female patient admitted to rehab with a working diagnosis of right parietal cerebrovascular accident. The patient has potential to make improvements. We instituted the following multidisciplinary therapies including, but not limited to physical, occupational, respiratory, speech, nutritional services, prosthetics and orthotics. Given her complex medical condition and risks for more complications, rehabilitation services cannot be provided at a low level of care such as fdc facility. PLAN: Admit to [facility] for inpatient therapy to include the following disciplines: A. Physical therapy to improve gait, all transfer skills and bed mobility to a modified independent level. B. Occupational therapy to improve activities of daily living. C. Case management to help with discharge planning and placement options. D. Nutrition to assist with nutritional needs. E. Rehabilitation nursing to assist in monitoring the patient's underlying medical conditions and to assist with any type of bowel or bladder management. 1. The patient's current medication and medical care will be continued. 2. Will be placed on standard fall precautions. 3. I am going to put a small Catapres patch on her to help with her blood pressure control. We will watch that we do not drop this too low and I will continue on the Brilinta and aspirin and probably see again in the a.m. TRANSINT:[id number] Voice Confirmation ID: [id number] DOCUMENT ID: [id number] CLOVER notes whether there has been none or any medical/functional HISTORY AND PHYSICAL [id number] ANDRY BROWNE change since admission: - No change since preadmission screen. CLOVER attests patient continues to be appropriate for IRF: - Continues to be appropriate. DASHAWN COHN MD at 0931 CC: [id number] DICTATION DATE: 01/16/21 0945 ELECTRICAL EQUIPMENT ASSEMBLER: 01/16/21 1031 ADM IN [facility] [address] [place] [address]
[2021-01-28 21:49] VITALS: BP 145/65
--- NOTE | 2021-01-29 07:31 | NUR ---
SHE IS ALERT, TALKING. HER JUST GOT HERE. SHE IS DISCHARGING TODAY. NO NEW ISSUES. THE CALL LIGHT IS WITHIN REACH AND THE BED ALARM IS ON.
[2021-01-29 07:52] LABS: BASOPHILS 0.3 % (0-2); EOSINOPHILS 1.8 % (0-7); HEMATOCRIT 40.6 % (36.0-48.0); HEMOGLOBIN 14.5 g/dL (12-16); IMMATURE GRANULOCYTES 0.2 % (0-5); LYMPHOCYTES 22.6 % (15-50); MCH 31.6 pg (26.0-34.0); MCHC 35.7 g/dL (31.0-37.0); MCV 88.5 fL (80.0-100.0); MONOCYTES 9.2 % (2-11); NEUTROPHIL ABS# 4.08 10x3/uL (1.56-6.13); NEUTROPHILS 65.9 % (40-80); PLATELET COUNT 252 10x3/uL (130-400); RBC 4.59 10x6/uL (4.00-5.40); WBC 6.2 10x3/uL (4.8-10.8)
[2021-01-29 08:00] LABS: CALC OSMOLALITY 269 mosm/kg (275-300); CALCIUM 9.3 mg/dL (8.5-10.1); CARBON DIOXIDE 27.5 mmol/L (21.0-32.0); CHLORIDE - SERUM 97 mmol/L (98-107); CREATININE - SERUM 0.6 mg/dL (0.6-1.3); GLUCOSE 123 mg/dL (74-106); POTASSIUM - SERUM 3.7 mmol/L (3.5-5.1); SODIUM 135 mmol/L (136-145); UREA NITROGEN 10 mg/dL (7-18); eGFR NON AFRICAN AMERICAN > 90 mL/min (90-120)
[2021-01-29 08:20] VITALS: BP 147/63
--- NOTE | 2021-01-29 09:59 | NUR ---
PATIENT DISCHARGING HOME [facility] WITH FAMILY. [facility] WILL PROVIDE THERAPY AT HOME. NO NEW DME NEEDED AT THIS TIME. DR.JEFFREY HODGES 02/08/21 @# 11:00, DR. PEARL 02/24/21 @ 8:30, DR. NJ 02/12/21 @ 9:00. MARV SIGNED, IMM SERVED AND EXPLIANED, COMPARE DATA REVIEWED PATIENT AND SPOUSE VOICED UNDERSTANDING. DISCHARGE INSTRUCTIONS FAXED TO PCP, HOME HEALTH AND REVIEWED WITH PATIENT AND SPOUSE.
--- NOTE | 2021-01-29 10:46 | NUR ---
PAPERWORK GONE OVER WITH THE PATIENT AND HER . QUESTIONS ANSWERED. APPOINTMENT TIMES FOR FOLLOW UP GIVEN IN WRITTEN PAPERWORK. MEDS CALL INTO [facility] [address].SHE HAS TAKEN OUT VIA WHEELCHAIR.
== END 2021-01-29 10:48 | disposition home health service (06) | DRG 56 ==
LOC: D.REHAB 16:47
PROVIDERS: ADMIT Emergency Medicine; ATTEND Emergency Medicine
DX: I69.30 Unspecified sequelae of cerebral infarction (principal); I63.9 Cerebral infarction, unspecified; G93.40 Encephalopathy, unspecified; G81.94 Hemiplegia, unspecified affecting left nondominant side; I25.10 Atherosclerotic heart disease of native coronary artery without angina pectoris; G89.29 Other chronic pain; R41.0 Disorientation, unspecified; E11.9 Type 2 diabetes mellitus without complications; I10 Essential (primary) hypertension; R47.1 Dysarthria and anarthria; E11.65 Type 2 diabetes mellitus with hyperglycemia; E87.6 Hypokalemia; R47.81 Slurred speech; Z91.81 History of falling

== ENCOUNTER 2021-02-16 11:51 | Day surgery (SDC) | payer MEDICARE, OTHER ==
[~2021-02-16] VITALS: Ht 165.1 cm; Wt 58.2 kg
--- NOTE | ~2021-02-16 | HEMODYNAMI ---
PATIENT:ANDRY BROWNE MEDICAL RECORD: [id number] : 44 LOCATION:D.[facility] ADMISSION DATE: 02/16/21 Generatedon:114:26 Patient name: ANDRY BROWNE Patient #: [id number] SSN: D OB: 1940 Date of study: 02/16/2021 Page: Of Hemodynamic Procedure Report Patient Data Patient Demographics Procedure consent was obtained First Name: ANDRY Gender: Female Last Name: HOLLIE : 1940 [facility] Initial: TAMI Age: 80 year(s) Patient #: [id number] Race: Unknown Additional ID: [id number] Contact details [address]: [address] [place] [address] COURT State: [place] City: [place] Zip code: [address] Admission Admission Data Admission Date: 02/16/2021 Admission Time: 11:51 Procedure Procedure Types Cath Procedure Diagnostic Procedure LEA Procedure Description Procedure Date Procedure Date: 02/16/2021 Procedure Start Time: 14:08 Procedure End Time: 14:22 Procedure Staff Name Function Parviz Garcia MD Performing Physician Kiarra Flores Senior Marketing Data Analyst Kamini Red RT Monitor Dian Mullins RT Monitor Matt Araujo RN Nurse Hasmukh Reyes CRNA Additional personnel Procedure Data Cath Procedure Estimated blood loss: 0 ml Procedure Complications No complications Procedure Medications Medication Administration Route Dosage 0.9% NaCl I.V. 100 ml/hr Oxygen etCO2 Nasal cannula 2 l/min Refer to Anesthesia Notes for Sedation Medications Oxygen etCO2 Nasal cannula 5 l/min Hemodynamics Rest Heart Rate: 101 (bpm) Snapshots Pre Cath Intra NCS Post Cath Vital Signs Time Heart Resp SPO2 etCO2 NIBP (mmHg) Rhythm Pain Sedation Rate (ipm) (%) (mmHg) Status Level (bpm) 13:54:34 101 8 97 0 169/96(132) NSR 0 (11) 10(A) , No pain 13:58:55 99 11 99 33.8 180/93(132) NSR 0 (11) 10(A) , No pain 14:04:04 100 26 100 30 166/92(126) NSR 0 (11) 10(A) , No pain 14:08:26 97 17 98 33.8 176/81(127) NSR 0 (11) 10(A) , No pain 14:12:48 99 18 100 18 173/80(126) NSR 0 (11) 8(A) , No pain 14:17:10 100 13 99 38.3 173/90(123) NSR 0 (11) 8(A) , No pain 14:21:28 96 34 100 9 163/96(117) NSR 0 (11) 9(A) , No pain 14:23:47 89 19 100 29.2 131/57(91) NSR 0 (11) 10(A) , No pain Medications Time Medication Route Dose Verified Delivered Reason Notes Effective ness by by 13:56:28 0.9% NaCl I.V. 100 Matt Matt Per ml/hr Gayle Araujo physician RN RN 13:56:40 Oxygen etCO2 2 Matt Matt for low Nasal l/min Farrahigan Farrahigan 02 sats cannula RN RN 14:11:50 Refer to Matt Gutierrez for Anesthesia Farrahigan Gayle sedation Notes for RN RN Sedation Medications 14:14:00 Oxygen etCO2 5 Matt Matt for low Nasal l/min Lorigan Lorigan 02 sats cannula RN customer contact representative Log Time Note 13:42:01 Informed consent obtained and on chart 13:42:25 Procedure Status LEA. 13:42:27 Time tracking: Regular hours (M-F 7:00 - 5:00) 13:42:31 Plan of Care:Hemodynamics will remain stable., Cardiac rhythm will remain stable., Comfort level will be maintained., Respiratory function will remain adequate., Patient/ family verbilizes understanding of procedure., Procedure tolerated without complication., Recovers from procedure without complications.. 13:42:33 Matt Araujo RN sent for patient. Start room use. 13:50:18 Hasmukh Reyes CRNA present and monitoring patient for TIVA. 13:53:26 Warm blankets applied, and vidya hugger turned on for patient comfort. 13:53:28 Correct patient and procedure confirmed by team. 13:53:30 ECG and BP/O2 sat monitors applied to patient. 13:53:31 Vital chart was started 13:53:33 Baseline sample Acquired. 13:53:35 Full Disclosure recording started 13:53:39 Baseline sample Acquired. 13:53:54 H&P Date Dictated: 02/16/2021 Within 30 days and on chart., H&P Addendum completed by physician on day of procedure. (MUST COMPLETE FOR ALL OUTPATIENTS). 13:53:57 Pre-procedure instructions explained to patient. 13:54:00 Family in patients room. 13:54:04 Patient NPO since Breakfast. 13:54:14 Is the patient allergic to Iodine/contrast media? No. 13:54:21 Is patient on blood thinner?Yes 13:54:25 ACC The patient was administered the following blood thiners within the last 24 hours: ACCAspirin, ACCPlavix 13:54:49 Snore? Yes 13:54:50 Sleep apnea? No 13:54:54 Dentures? Yes ? 13:55:15 Lab results completed and on chart. 13:56:03 Physician arrived 13:56:04 --------ALL STOP TIME OUT------ 13:56:04 Final Timeout: patient, procedure, and site verified with staff and physician. All members of the team are in agreement. 13:56:20 Fire Safety Assessment: A--An alcohol-based skin anteseptic being used preoperatively., C--Open oxygen or nitrous oxide is being used., D--An ESU, laser, or fiber-optic light is being used. 13:56:28 0.9% NaCl 100 ml/hr I.V. was administered by Matt Araujo RN; Per physician; Verbal order read back and verified. 13:56:29 Physical assessment completed. ASA score P 3 - A patient with severe systemic disease as per Parviz Garcia MD. 13:56:36 Sedation plan: TIVA Medication:Propofol 13:56:40 Oxygen 2 l/min etCO2 Nasal cannula was administered by Matt Araujo RN; for low 02 sats; Verbal order read back and verified. 13:56:47 LEA 13:56:53 Kiarra INDOM Tech present for LEA. 14:08:15 Hasmukh Eric LOOM OPERATOR APPRENTICE present and monitoring patient for TIVA. 14:08:30 Procedure started. 14:11:50 Refer to Anesthesia Notes for Sedation Medications was administered by Matt Araujo RN; for sedation; Verbal order read back and verified. 14:11:50 LEA started. 14:14:00 Oxygen 5 l/min etCO2 Nasal cannula was administered by Matt Araujo RN; for low 02 sats; Verbal order read back and verified. 14:20:02 Procedure ended.(Physican Out) 14:20:45 LEA completed. 14:21:27 Post procedure rhythm: unchanged. 14:21:32 Estimated blood loss: 0 ml 14:21:34 Post procedure instruction explained to patient.Patient verbalizes understanding. 14:21:38 Procedure and supply charges have been captured, reviewed, submitted and are correct. 14:21:55 Procedure Complication : No complications 14:21:58 Vital chart was stopped 14:22:05 LEA Findings: no vegetation noted 14:22:15 Report given to Pre/Post Procedure Room. 14:22:20 Patient transfered to Pre/Post Procedure Room with Stretcher. 14:22:23 Procedure ended. 14:22:23 Full Disclosure recording stopped 14:22:26 End room use (Document Last) Signature Audit [place] Stage Time Signature Unsigned Intra-Procedure 02/16/2021 Dian Mullins 2:24:31 PM RT(R) Intra-Procedure 02/16/2021 Matt 2:25:01 PM Gayle DANIELS Intra-Procedure 02/16/2021 Parviz Franks 2:26:02 PM Jonnathan [id number] [place] [address]
[~2021-02-16 11:51] MED LIST changes: +Altace PO
[2021-02-16 12:47] VITALS: BP 149/68; Ht 165.1 cm; Wt 58.2 kg
[2021-02-16 13:22] LABS: BASOPHILS 0.4 % (0-2); EOSINOPHILS 1.8 % (0-7); HEMATOCRIT 39.4 % (36.0-48.0); HEMOGLOBIN 14.3 g/dL (12-16); IMMATURE GRANULOCYTES 0.4 % (0-5); LYMPHOCYTE ABS# 1.25 10x3/uL (1.18-3.74); LYMPHOCYTES 22.1 % (15-50); MCH 32.4 pg (26.0-34.0); MCHC 36.3 g/dL (31.0-37.0); MCV 89.3 fL (80.0-100.0); MEAN PLATELET VOLUME 9.8 fL (7.4-10.4); MONOCYTES 6.9 % (2-11); NEUTROPHIL ABS# 3.88 10x3/uL (1.56-6.13); NEUTROPHILS 68.4 % (40-80); PLATELET COUNT 204 10x3/uL (130-400); RBC 4.41 10x6/uL (4.00-5.40); RDW 14.2 % (11.5-14.5); WBC 5.7 10x3/uL (4.8-10.8)
[2021-02-16 13:25] LABS: CALC OSMOLALITY 269 mosm/kg (275-300); CALCIUM 9.3 mg/dL (8.5-10.1); CARBON DIOXIDE 26.8 mmol/L (21.0-32.0); CHLORIDE - SERUM 97 mmol/L (98-107); CREATININE - SERUM 0.6 mg/dL (0.6-1.3); GLUCOSE 106 mg/dL (74-106); POTASSIUM - SERUM 3.4 mmol/L (3.5-5.1); SODIUM 135 mmol/L (136-145); UREA NITROGEN 13 mg/dL (7-18); eGFR NON AFRICAN AMERICAN > 90 mL/min (90-120)
--- NOTE | 2021-02-16 14:31 | NUR ---
PT ARRIVED BY STRETCHER. PLACED ON MONITORS. ASSESSMENT COMPLETED. VSS AT THIS TIME. CALL LIGHT WITHIN REACH. DR. COBURN ROUNDED AND SPOKE WITH PT AND PT'S .
--- NOTE | 2021-02-16 14:45 | NUR ---
PT RESTING COMFORTABLY. VSS AT THIS TIME. CALL LIGHT WITHIN REACH. FAMILY AT BEDSIDE. NO NEEDS AT THIS TIME. STILL NPO.
--- NOTE | 2021-02-16 15:15 | NUR ---
VSS. PT RESTING COMFORTABLY. PIV D/C'D WITH CATH TIP INTACT. TOLERATED WELL. PT INSTRUCTED TO GET UP AND DRESSED AT THIS TIME. FAMILY AT BEDSIDE TO ASSIST. CALL LIGHT WITHIN REACH.
--- NOTE | 2021-02-16 15:20 | NUR ---
DISCUSSED DISCHARGE INSTRUCTIONS WITH PT AND PT'S FAMILY. THEY VOICED UNDERSTANDING. PT UP TO BEDSIDE COMMODE TO VOID WITHOUT DIFFICULTY. PT ABLE TO DO OWN [facility].
--- NOTE | 2021-02-16 15:35 | NUR ---
PT TAKEN OUT TO VEHICLE BY WHEELCHAIR. NO S/S OF DISTRESS NOTED. ALL BELONGINGS AND PAPERWORK IN HAND.
--- NOTE | 2021-02-17 12:14 | HP ---
PATIENT: ANDRY BROWNE MEDICAL RECORD: [id number] ACCOUNT: [id number] LOCATION:[facility] : 44 ADMISSION DATE: 02/16/21 PCP: SHANTHI HODGES MD HISTORY AND PHYSICAL EXAMINATION HISTORY OF PRESENT ILLNESS: A 80-year-old lady with history of TIA symptomatology who recently underwent carotid endarterectomy a year ago, has had recurrent since then. Carotid Dopplers were normal. Concern for embolic source considering a possible DOAC therapy with recurrent TIAs, being brought for transesophageal echo. PAST MEDICAL HISTORY: Includes; 1. History of TIAs. 2. Cerebrovascular disease. 3. Hypertension. 4. Hyperlipidemia. 5. Diabetes mellitus. MEDICATIONS: Include aspirin 81 every day, Plavix 75 every day, glimepiride 4 at bedtime, metformin 1 gram b.i.d., metoprolol 25 b.i.d. PHYSICAL EXAMINATION: GENERAL: Pleasant, no acute distress, appears stated age. HEENT: Normocephalic, atraumatic. NECK: No bruits noted. HEART: Regular, II/ systolic ejection murmur. LUNGS: Good air excursion. ABDOMEN: Soft, nontender. EXTREMITIES: Pulse 2+ with no edema. IMPRESSION AND PLAN: Transesophageal. TRANSINT:[id number] Voice Confirmation ID: [id number] DOCUMENT ID: [id number] XI COBURN MD at 1214 CC: [id number] DICTATION DATE: 02/16/21 1349 BOOM STORAGE: 02/16/21 1406 [facility] 02/16/21 [id number] [place] [address]
--- NOTE | 2021-02-17 12:15 | TEE ---
PATIENT:ANDRY BROWNE MEDICAL RECORD: [id number] LOCATION:D.[facility] AGE OF PATIENT: 80 ADMISSION DATE: 02/16/21 SEX: F REFERRING PHYSICIAN: INTERPRETING PHYSICIAN: XI COBURN MD TRANSESOPHAGEAL ECHOCARDIOGRAM Date: LEA CHARGE INDICATIONS: PREMEDICATIONS: PATIENT'S RESPONSE PROCEDURE DOPPLER MEASUREMENTS: LVIT LA PA RA LVOT RVOT Asc. Ao AV Gradient Peak AV Mean AV Area MV Gradient Peak MV Mean MV Area INTERPRETATION: Doppler: 2-D: COLOR FLOW DOPPLER NORMAL SALINE STUDY: MISCELLANOUS: DIAGNOSIS: PLAN: Pediatric Acute Care Unit Nurse: Wire Galvanizer: COMMENTS: DATE OF SERVICE: 02/16/2021 TRANSESOPHAGEAL NOTE Under general sedation via TIVA via anesthesia, transesophageal Omniplane probe was placed in the distal esophagus and proximal stomach without difficulty. FINDINGS: Normal LV wall motion, normal wall thickening. EF greater than or equal to 55%. Aortic valve is tricuspid with good valve excursion. No TRANSESOPHAGEAL ECHOCARDIOGRAM REPORT [id number] MAI BROWNE significant AI. Left atrium appears normal. Left atrial appendage is well visualized with good contractility. Mitral valve is well visualized. No prolapse. Good valve excursion. Mild MR. Right side chambers are grossly normal. Mild TR. At the end of the procedure, the transesophageal Omniplane probe was turned posteriorly and this shows minimal atherosclerotic debris in the ascending aorta. During the procedure, the patient was monitored continuously with pulse oximetry, telemetry, and noninvasive blood pressure monitoring. FINAL IMPRESSION: Normal left ventricular function, no evidence of a cardioembolic source to explain previous TIAs. TRANSINT:[id number] Voice Confirmation ID: [id number] DOCUMENT ID: [id number] at 1215 CC: [id number] DICTATION DATE: 02/16/21 1424 POWER SAW MECHANIC: 02/17/21 0321 [facility] 02/16/21 [id number] [place] [address]
== END 2021-02-16 15:35 | disposition home or self-care (01) ==
LOC: D.CATH 11:51
PROVIDERS: ATTEND Internal Medicine Interventional Cardiology
DX: I20.9 Angina pectoris, unspecified (principal); I10 Essential (primary) hypertension; E11.9 Type 2 diabetes mellitus without complications; E78.2 Mixed hyperlipidemia; I65.22 Occlusion and stenosis of left carotid artery; I35.8 Other nonrheumatic aortic valve disorders; Z86.73 Personal history of transient ischemic attack (TIA), and cerebral infarction without residual deficits; I67.9 Cerebrovascular disease, unspecified